=== PATIENT | male | born 1935 ===

== ENCOUNTER 2018-05-31 23:43 | Inpatient (IN) | payer MEDICAID, MEDICARE ==
[2018-05-31 23:43] VITALS: BMI 29.1
[2018-06-01 02:36] LABS: INR 1.4; PROTHROMBIN TIME 16.4 Seconds (9.8-13.1)
[2018-06-01 02:39] LABS: PARTIAL THROMBOPLASTIN TIME 37.1 Seconds (25.6-37.1)
[2018-06-01 02:40] LABS: BLOOD UREA NITROGEN 23 mg/dl (9-20); GFR NON-AFRICAN AMERICAN > 60
[2018-06-01 02:42] LABS: BASO % 0.4 % (0.0-2.0); EOS # 0.1 K/uL (0.0-0.7); EOS % 2.6 % (0.0-4.0); HEMOGLOBIN 12.8 g/dL (12.0-18.0); LYMPH % 17.7 % (20.0-40.0); MEAN CELL VOLUME 99.8 fl (80.0-94.0); MEAN CORPUSCULAR HEMOGLOBIN 33.4 pg (27.0-31.0); MEAN CORPUSCULAR HGB CONC 33.5 g/dL (33.0-37.0); MONO % 17.1 % (0.0-10.0); NEUT # 3.5 K/uL (1.8-7.0); NEUT % 62.2 % (50.0-75.0); RBC 3.82 Mil/uL (4.40-5.90); RED CELL DISTRIBUTION WIDTH 13.9 % (11.5-14.5); WHITE BLOOD COUNT 5.7 K/uL (4.8-10.8)
[2018-06-01] MEDS ORDERED: Iohexol 300 100 ML IJ ONE (03:20)
[2018-06-01] MEDS ORDERED: Sodium Chloride 0.9% 50 ML IV ONE (03:20)
--- NOTE | 2018-06-01 04:01 | ED PDOC ---
Lower Extremity Pain/Injury Time Seen by Provider: 06/01/18 01:09 Chief Complaint (Nursing): Lower Extremity Problem/Injury Chief Complaint (Provider): Lower Extremity Problem/Injury History Per: Patient History/Exam Limitations: no limitations Onset/Duration Of Symptoms: Days Additional Complaint(s): 82 year old male with a history of multiple comorbidities including CVA, CAD, HIV and vascular disease presents to the ED for evaluation of worsening swelling and discoloration to his lower left extremity. He report an unwitnessed fall on and a small bump that appeared soon over. Over the last few days, the discoloration and swelling have spread down the entire extremity. Patient now reports ankle swelling. His daughter is at bedside and reports that she asked [facility] to call an ambulance multiple times and they refused, prompting her to call one herself. Patient is mostly non verbal however appears to be in pain when the left lower extremity is palpated. Denies any other complaints. PMD: Franklin Wilkerson Past Medical History Reviewed: Historical Data, Nursing Documentation, Vital Signs Vital Signs: Last Vital Signs Temp 97.8 F 05/31/18 23:48 Pulse 60 05/31/18 23:48 Resp 18 05/31/18 23:48 BP 146/64 05/31/18 23:48 Pulse Ox 100 05/31/18 23:48 - Medical History PMH: Asthma, CAD, CVA, HIV, HTN, TIA Denies: Chronic Kidney Disease - Surgical History Surgical History: No Surg Hx - Family History Family History: States: Unknown Family Hx - Immunization History Hx Tetanus Toxoid Vaccination: No (unknown) Hx Influenza Vaccination: No (unknown) Hx Pneumococcal Vaccination: No (unknown) - Home Medications Home Medications: Ambulatory Orders Medication Instructions Recorded Budesonide [Pulmicort Respules] 0.5 mg IH BID 10/06/17 Docusate [Colace] 100 mg PO BID 10/06/17 Efinaconazole [Jublia] 1 applic TP HS 10/06/17 Insulin Detemir [Levemir] 10 unit SC 10/06/17 Propylene Glycol/Peg 400 [Systane 1 drop BOTHEYES DAILY 10/06/17 0.3-0.4% Eye Drops] Raltegravir Potassium [Isentress] 400 mg PO BID 10/06/17 Rilpivirine HCl [Edurant] 25 mg PO DAILY 10/06/17 Sennosides [Senno] 8.6 mg PO HS 10/06/17 Clopidogrel [Plavix] 75 mg PO DAILY #0 tab 10/11/17 Famotidine [Pepcid] 20 mg PO DAILY tab 10/11/17 Rosuvastatin Calcium 2.5 [Crestor] 2.5 mg PO HS tab 10/11/17 Albuterol/Ipratropium [Duoneb 3 3 ml IH RQ6 PRN neb 10/17/17 mg/0.5 mg (3 ml) UD] Amantadine [Symmetrel] 100 mg PO DAILY ml 10/17/17 Apixaban [Eliquis] 5 mg PO BID 999 Days tab 10/17/17 Sulfamethoxazole/Trimethoprim 20 ml PO MWF 30 Days alexsander 10/17/17 [Bactrim 200mg-40mg/5mL Susp] Gentamicin Sulfate 1 applic TOP DAILY 10/23/17 Insulin Aspart [Novolog Flexpen] 7 unit SC TID 10/23/17 Magnesium Hydroxide [Milk of 30 ml PO DAILY PRN 10/23/17 Magnesia] Mylanta 30 ml PO Q4 PRN 10/23/17 Emtricitabine/Tenofov Alafenam 1 each PO DAILY #30 tablet 10/28/17 [Descovy 200-25 mg Tablet] Raltegravir Potassium [Isentress] 400 mg PO BID #60 tab 10/28/17 Ciprofloxacin [Cipro] 500 mg PO BID #14 tab 10/30/17 Finasteride [Proscar] 5 mg PO DAILY tab 10/30/17 - Allergies Allergies/Adverse Reactions: Allergies Allergy/AdvReac Type Severity Reaction Status Date / Time No Known Allergies Allergy Verified 10/06/17 17:52 Review of Systems ROS Statement: Except As Marked, All Systems Reviewed And Found Negative Musculoskeletal: Positive for: Leg Pain Physical Exam - Reviewed Nursing Documentation Reviewed: Yes Vital Signs Reviewed: Yes - Physical Exam Appears: Positive for: No Acute Distress Head Exam: Positive for: ATRAUMATIC, NORMAL INSPECTION, NORMOCEPHALIC Skin: Positive for: Normal Color, Warm, Dry Eye Exam: Positive for: EOMI, Normal appearance, PERRL Neck: Positive for: Normal, Painless ROM, Supple Cardiovascular/Chest: Positive for: Regular Rate, Rhythm. Negative for: Murmur Respiratory: Positive for: Normal Breath Sounds. Negative for: Respiratory Distress Gastrointestinal/Abdominal: Positive for: Normal Exam, Soft. Negative for: Tenderness Extremity: Positive for: Normal ROM, Other (left lower extremity is warm to palpation. Bluish discoloraton along anterolateral leg and a 3 x 3 cm area of fluctuance). Negative for: Deformity Neurologic/Psych: Positive for: Alert, Oriented. Negative for: Motor/Sensory Deficits - Laboratory Results Result Diagrams: 06/01/18 02:05 06/01/18 02:05 - ECG O2 Sat by Pulse Oximetry: 100 (RA) Pulse Ox Interpretation: Normal Medical Decision Making Medical Decision Makin:26 MDM: workup for standing hematoma vs infectious process vs thrombosis Initial x-rays to determine coagulation profile Consider CT Will give pain control if it worsens. 02:59 Ct of lower extremity ordered. 5:30 CT shows large hematoma and extravation of contrast suggestive of continued bleeding. Surgery resident was contacted and official surgery consult was placed. Leg placed in deonna wrap. Pt to be admitted to the medicine floor under Dr. Cuevas. Scribe Attestation: Documented by Lea Baum acting as a scribe for Josey Alcantar MD Provider Scribe Attestation: All medical record entries made by the Scribe were at my direction and personally dictated by me. I have reviewed the chart and agree that the record accurately reflects my personal performance of the history, physical exam, medical decision making, and the department course for this patient. I have also personally directed, reviewed, and agree with the discharge instructions and disposition. Disposition - Clinical Impression Clinical Impression: HIV positive, History of CVA (cerebrovascular accident), Hematoma - Patient ED Disposition Is Patient to be Admitted: Yes - Disposition Disposition Time: 05:30 Condition: STABLE Forms: [employer] ([place])
--- NOTE | 2018-06-01 06:04 | CP.PCM.CON ---
History of Present Illness - History of Present Illness History of Present Illness: General Surgery: Dr Ochoa Pt is an 82M with PMH of CVA, CAD, PAD, DM, HTN, HIV. Pt is brought to ED from [place] by his daughter. She reports on she noted he had a small bruise on his left gaitan. Over the course of the next several days it continued to expand, now resulting in a decent tennis-ball sized hematoma over the gaitan, with associated skin changes. The area is warm to touch. Does not appear to cause the pt any pain or discomfort. Inciting event unknown. Pt is on eliquis AND plavix. No intervention has been done to this point. PMH: as above PSH: denies Review of Systems - Review of Systems Systems not reviewed;Unavailable: Dementia All systems: reviewed and no additional remarkable complaints except (as per hpi) Past Patient History - Past Medical History & Family History Past Medical History?: Yes - Past Social History Smoking Status: Never Smoked - CARDIAC Hx Hypertension: Yes - PULMONARY Hx Asthma: Yes - NEUROLOGICAL Hx Transient Ischemic Attacks (TIA): Yes - HEENT Hx HEENT Problems: No - RENAL Hx Chronic Kidney Disease: No - ENDOCRINE/METABOLIC Hx Diabetes Mellitus Type 2: Yes - HEMATOLOGICAL/ONCOLOGICAL Hx Human Immunodeficiency Virus (HIV): Yes - INTEGUMENTARY Hx Dermatological Problems: Yes Other/Comment: Stage 2 ulcer- R buttock 2 cm x 1.5 cm. right cheek scab - MUSCULOSKELETAL/RHEUMATOLOGICAL Hx Falls: No - GASTROINTESTINAL Hx Gastrointestinal Disorders: No - GENITOURINARY/GYNECOLOGICAL Hx Genitourinary Disorders: No - PSYCHIATRIC Hx Psychophysiologic Disorder: No Hx Substance Use: No - SURGICAL HISTORY Hx Surgeries: No - ANESTHESIA Hx Anesthesia: No Meds Allergies/Adverse Reactions: Allergies Allergy/AdvReac Type Severity Reaction Status Date / Time No Known Allergies Allergy Verified 10/06/17 17:52 Physical Exam - Constitutional Appears: Non-toxic, No Acute Distress - ENT Exam ENT Exam: Mucous Membranes Moist - Respiratory Exam Respiratory Exam: absent: Respiratory Distress - Cardiovascular Exam Cardiovascular Exam: absent: Tachycardia - Extremities Exam Additional comments: left gaitan with ~ 5x5cm hematoma with associated skin changes warm to touch compared to other extremity Results - Vital Signs Recent Vital Signs: Last Vital Signs Temp 97.8 F 05/31/18 23:48 Pulse 60 05/31/18 23:48 Resp 18 05/31/18 23:48 BP 146/64 05/31/18 23:48 Pulse Ox 100 06/01/18 05:38 - Labs Result Diagrams: 06/01/18 02:05 06/01/18 02:05 Labs: Laboratory Results - last 24 hr 06/01/18 06/01/18 06/01/18 02:05 02:05 02:05 WBC 5.7 RBC 3.82 L Hgb 12.8 Hct 38.1 MCV 99.8 H MCH 33.4 H MCHC 33.5 RDW 13.9 Plt Count 224 MPV 7.0 L Neut % (Auto) 62.2 Lymph % (Auto) 17.7 L [place] % (Auto) 17.1 H Eos % (Auto) 2.6 Baso % (Auto) 0.4 Neut # (Auto) 3.5 Lymph # (Auto) 1.0 [place] # (Auto) 1.0 H Eos # (Auto) 0.1 Baso # (Auto) 0.0 PT 16.4 H INR 1.4 APTT 37.1 Sodium 139 Potassium 5.0 Chloride 108 H Carbon Dioxide 24 Anion Gap 12 BUN 23 H Creatinine 1.0 Est GFR ( Amer) > 60 Est GFR (Non-Af Amer) > 60 Random Glucose 167 H Calcium 9.0 Assessment & Plan - Assessment and Plan (Free Text) Assessment: 82M with expanding hematoma of left gaitan Plan: compression wrap with deonna bandage ice packs elevate leg above heart level hold anti-coagulation no immediate intervention - but may need IR vs OR if continues to worsen will d/w Dr Don Sinclair, PGY4
[2018-06-01] MEDS ORDERED: guaiFENesin 600 mg ER Tab PO PRN (06:29)
[2018-06-01] MEDS ORDERED: Glucagon Recombinant 1 mg Inj IM PRN (06:33)
[2018-06-01] MEDS ORDERED: Dextrose 50% SYRINGE Inj (50 ml) IV PRN (06:33)
--- NOTE | 2018-06-01 06:52 | CP.PCM.HP ---
History of Present Illness - History of Present Illness History of Present Illness: 82 y/o male w/ pmhx of a-fib on anti-coagulants, stroke, HIV, CHF, and HTN who was transferred from [facility] due to worsening, painful, left lower extremity/gaitan hematoma. Patient had a stroke 8 months ago, and is a poor histo abbie. Daughter at bedside has POA. She states that she is unsure if patient had any trauma to the area. Denies chest pain, fevers, n/v, SOB. 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 Lives at [facility]. FamHx: Parents w/ DM Allergies: NKDA HomeRx: Apixaban 5mg PO BID, Plavix 75mg 1 tab PO QD, Domase Elijah 3mL BID, Raltegravir Potassium 400mg BID, Rilpivirine 25mg PO QD, Sulfamethoxazole- Trimethroprim 200-40 mg/5ML 20mL MWF, Systane 1 drop in both eyes QD, Descovy 200-25mg QD, DuoNeb 0.5-2.5 Q6H PRN, Budesonide Suspension 0.5mg/2mL BID, Ins ulin Detemir 10 units SC HS Code Status: Full code Next of Kin: Aliyah Davies, Present on Admission - Present on Admission Any Indicators Present on Admission: No History of DVT/PE: No History of Uncontrolled Diabetes: No Urinary Catheter: No Decubitus Ulcer Present: No Review of Systems - Review of Systems Systems not reviewed;Unavailable: Other (Poor historian due to stroke) - Cardiovascular Cardiovascular: absent: Chest Pain - Respiratory Respiratory: absent: Cough - Gastrointestinal Gastrointestinal: absent: Nausea, Vomiting - Musculoskeletal Musculoskeletal: absent: Numbness, Tingling - Integumentary Integumentary: Change in Pigmentation, Changing Lesions, Erythema, Swelling, Unusual Bruising Additional comments: on left gaitan - Neurological Neurological: Abnormal Speech Past Patient History - Infectious Disease Hx of Infectious Diseases: None - Past Medical History & Family History Past Medical History?: Yes - Past Social History Smoking Status: Never Smoked Alcohol: None Drugs: Denies - CARDIAC Hx Hypertension: Yes - PULMONARY Hx Asthma: Yes - NEUROLOGICAL Hx Transient Ischemic Attacks (TIA): Yes - HEENT Hx HEENT Problems: No - RENAL Hx Chronic Kidney Disease: No - ENDOCRINE/METABOLIC Hx Diabetes Mellitus Type 2: Yes - HEMATOLOGICAL/ONCOLOGICAL Hx Human Immunodeficiency Virus (HIV): Yes - INTEGUMENTARY Hx Dermatological Problems: Yes Other/Comment: Stage 2 ulcer- R buttock 2 cm x 1.5 cm. right cheek scab - MUSCULOSKELETAL/RHEUMATOLOGICAL Hx Falls: No - GASTROINTESTINAL Hx Gastrointestinal Disorders: No - GENITOURINARY/GYNECOLOGICAL Hx Genitourinary Disorders: No - PSYCHIATRIC Hx Psychophysiologic Disorder: No Hx Substance Use: No - SURGICAL HISTORY Hx Surgeries: No - ANESTHESIA Hx Anesthesia: No Meds Allergies/Adverse Reactions: Allergies Allergy/AdvReac Type Severity Reaction Status Date / Time No Known Allergies Allergy Verified 10/06/17 17:52 Physical Exam - Constitutional Appears: No Acute Distress - Head Exam Head Exam: ATRAUMATIC - Eye Exam Eye Exam: Normal appearance - ENT Exam ENT Exam: Mucous Membranes Moist - Respiratory Exam Respiratory Exam: Clear to Auscultation Bilateral, NORMAL BREATHING PATTERN - Cardiovascular Exam Cardiovascular Exam: REGULAR RHYTHM, +S1, +S2 - GI/Abdominal Exam GI & Abdominal Exam: Normal Bowel Sounds, Soft. absent: Tenderness - Extremities Exam Extremities exam: Negative for: calf tenderness, joint swelling, pedal edema Additional comments: Left anterior surface of gaitan: large, tender, erythematous swelling - Neurological Exam Neurological exam: Alert - Skin Skin Exam: Dry, Intact, Warm Results - Vital Signs Recent Vital Signs: Last Vital Signs Temp 98.0 F 06/01/18 06:02 Pulse 60 06/01/18 06:02 Resp 18 06/01/18 06:02 BP 174/78 H 06/01/18 06:02 Pulse Ox 100 06/01/18 06:02 - Labs Result Diagrams: 06/01/18 02:05 06/01/18 02:05 Labs: Laboratory Results - last 24 hr 06/01/18 06/01/18 06/01/18 02:05 02:05 02:05 WBC 5.7 RBC 3.82 L Hgb 12.8 Hct 38.1 MCV 99.8 H MCH 33.4 H MCHC 33.5 RDW 13.9 Plt Count 224 MPV 7.0 L Neut % (Auto) 62.2 Lymph % (Auto) 17.7 L [place] % (Auto) 17.1 H Eos % (Auto) 2.6 Baso % (Auto) 0.4 Neut # (Auto) 3.5 Lymph # (Auto) 1.0 [place] # (Auto) 1.0 H Eos # (Auto) 0.1 Baso # (Auto) 0.0 PT 16.4 H INR 1.4 APTT 37.1 Sodium 139 Potassium 5.0 Chloride 108 H Carbon Dioxide 24 Anion Gap 12 BUN 23 H Creatinine 1.0 Est GFR ( Amer) > 60 Est GFR (Non-Af Amer) > 60 Random Glucose 167 H Calcium 9.0 Assessment & Plan - Assessment and Plan (Free Text) Assessment: 82 y/o male w/ hx of CHF and afib on plavix and abixaban admitted with expanding hematoma of left gaitan Plan: Left Gaitan Hematoma Acute CT of left tibia and fibula: superficial subcutaneuos anterior mid neck soft tissue hematoma w/ active contrast extravasation suggestive of active bleeding. No fractures. Surgery consult on board; appreciate recs: compression wrap with deonna bandage, ice packs, elevate leg above heart level. No surgical intervention at this time, but may need IR vs OR if continues to worsen Hold anti-coagulation Repeat labs in AM Tylanol 325mg PO for 1-3 pain Percocet for 4-6 pain Hx of HIV Cont. home meds Descovy 200-25mg 1 tab PO QD Raltegravir Potassium 400mg 1 tab PO Q12 Rilpivirine Hcl 25mg PO QD Sulfamethoxazole-Trimethoprim 200-40 20mL one time MWF Hx of Afib Hold anti-coagulants Will monitor Hx of DM Chronic, stable Coverage scale Cont. home meds Hx of HTN Chronic, stable cont. home meds Diet NPO DVT prophylaxis SCD on right leg Code Status Full code
[2018-06-01] MEDS: Insulin Lispro (humaLOG) 100 Units/ml Inj SC SCH ×7 (07:00→22:57)
[2018-06-01] MEDS: Dextrose 5%/0.45% NS 1,000 ML IV SCH ×2 (07:40→21:40)
[2018-06-01] MEDS ORDERED: RILPIVIRINE HCL 25 MG PO SCH (09:00)
[2018-06-01] MEDS ORDERED: Tmp-Smz 200-40mg/5 ml Oral Sus(120 ml) PO SCH (09:00)
--- NOTE | 2018-06-01 11:00 | RAD ---
Date of service: 06/01/2018 PROCEDURE: Left Ankle Radiographs. HISTORY: left ankle pain COMPARISON: None available. FINDINGS: BONES: Normal. No fracture. JOINTS: Normal. No osteoarthritis. Ankle mortise maintained. Talar dome intact SOFT TISSUES: Normal. OTHER FINDINGS: Postoperative changes related to arterial bypass. Dense calcifications of [place] arteries. IMPRESSION: No acute findings related to/ accounting for the clinical presentation.
--- NOTE | 2018-06-01 11:56 | RAD ---
Date of service: 06/01/2018 PROCEDURE: Radiographs of the left tibia and fibula. HISTORY: left leg swelling and pain s/p fall COMPARISON: None available. TECHNIQUE: Frontal and lateral views obtained. FINDINGS: BONES: No fracture or destructive lesion. JOINT SPACES: Unremarkable. OTHER FINDINGS: Soft tissue swelling proximal pretibial region anteriorly. No visualized radiopaque foreign body. IMPRESSION: Soft tissue swelling without acute articular or osseous abnormality.
[2018-06-01 12:30] LABS: HEMOGLOBIN 13.5 g/dL (12.0-18.0); MEAN CELL VOLUME 99.4 fl (80.0-94.0); MEAN CORPUSCULAR HEMOGLOBIN 33.1 pg (27.0-31.0); MEAN CORPUSCULAR HGB CONC 33.3 g/dL (33.0-37.0); RBC 4.09 Mil/uL (4.40-5.90); RED CELL DISTRIBUTION WIDTH 13.8 % (11.5-14.5); WHITE BLOOD COUNT 5.1 K/uL (4.8-10.8)
[2018-06-01] MEDS: TENOFOV ALAFENAM PO SCH (13:00)
[2018-06-01] MEDS: Artificial Tears Opht Soln OU SCH (13:00)
[2018-06-01] MEDS: EMTRICITABINE PO SCH (13:00)
[2018-06-01] MEDS: RILPIVIRINE HCL 25 MG PO SCH (13:00)
[2018-06-01] MEDS: Budesonide 0.5 mg/2 ml Inhal Susp UD IH SCH (19:17)
[2018-06-01] MEDS: Insulin Detemir 100 Units/ml Inj SC SCH (21:51)
[2018-06-01] MEDS ORDERED: EFINACONAZOLE TP SCH (22:00)
[2018-06-01] MEDS: Oxycodone/Acetaminophen 5/325 mg Tab PO PRN (23:21)
--- NOTE | 2018-06-02 06:22 | CP.PCM.PN ---
Subjective - Date & Time of Evaluation Date of Evaluation: 06/02/18 Time of Evaluation: 06:20 - Subjective Subjective: General Surgery Progress Note for Dr. Ochoa 82M seen and evaluated at bedside this morning with daughter present. No acute events overnight. Daughter complained that his urine smelled foul and requested a UA. A condom cath was placed as well. Patient resting comfortably in bed. No pain in the leg noted. Denies f/c, n/v/d, SOB, CP. Objective - Vital Signs/Intake and Output Vital Signs (last 24 hours): Temp Pulse Resp BP Pulse Ox 98.3 F 60 20 156/67 H 98 06/01/18 23:35 06/01/18 23:35 06/01/18 23:35 06/01/18 23:35 06/01/18 23:35 - Medications Medications: Current Medications Acetaminophen (Tylenol 325mg Tab) 650 mg PO Q6 PRN PRN Reason: Pain, Mild (1-3) Albuterol/Ipratropium (Duoneb 3 Mg/0.5 Mg (3 Ml) Ud) 3 ml IH RQ6 PRN PRN Reason: Wheezing Artificial Tears (Artificial Tears) 1 drop OU DAILY [facility] Last Admin: 06/01/18 13:00 Dose: 1 units Budesonide (Pulmicort Respules) 0.5 mg IH RBID [facility] Last Admin: 06/01/18 19:17 Dose: 0.5 mg Dextrose (Dextrose 50% Inj) 0 ml IV STAT PRN; Protocol PRN Reason: Hypoglycemia Protocol Dextrose (Glutose 15) 0 gm PO ONCE PRN; Protocol PRN Reason: Hypoglycemia Protocol Glucagon (Glucagen Diagnostic Kit) 0 mg IM STAT PRN; Protocol PRN Reason: Hypoglycemia Protocol Guaifenesin (Mucinex La) 600 mg PO Q12 PRN PRN Reason: congestion Home Med (Efinaconazole [Jublia]) 1 applic TP HS [facility] Home Med (Emtricitabine/Tenofov Alafenam [Descovy 200-25 Mg Tablet]) 1 each PO DAILY [facility] Last Admin: 06/01/18 13:00 Dose: 1 each Home Med (Rilpivirine Hcl [Edurant]) 25 mg PO DAILYWM [facility] Last Admin: 06/01/18 13:00 Dose: 25 mg Dextrose/Sodium Chloride (Dextrose 5%/0.45% Ns 1000 Ml) 1,000 mls @ 80 mls/hr IV .[id number] [facility] Stop: 06/02/18 06:21 Last Admin: 06/01/18 21:40 Dose: 80 mls/hr Insulin Detemir (Levemir) 10 units SC HS [facility] Last Admin: 06/01/18 21:51 Dose: Not Given Insulin Human Lispro (Humalog) 7 units SC TID [facility] Last Admin: 06/01/18 17:21 Dose: 7 u Insulin Human Lispro (Humalog) 0 units SC ACCU-CHECK [facility]; Protocol Last Admin: 06/01/18 22:57 Dose: Not Given Oxycodone/Acetaminophen (Percocet 5/325 Mg Tab) 1 tab PO Q4 PRN PRN Reason: Pain, moderate (4-7) Stop: 06/04/18 06:35 Last Admin: 06/01/18 23:21 Dose: 1 tab Raltegravir (Isentress) 400 mg PO BID [facility]; Protocol Last Admin: 06/01/18 17:22 Dose: 400 mg Trimethoprim/Sulfamethoxazole (Sulfatrim Pediatric Susp) 20 ml PO MWF [facility]; Protocol Last Admin: 06/01/18 17:17 Dose: 20 ml - Labs Labs: 06/01/18 12:10 06/01/18 02:05 PT 16.4 Seconds (9.8-13.1) H 06/01/18 02:05 INR 1.4 06/01/18 02:05 APTT 37.1 Seconds (25.6-37.1) 06/01/18 02:05 - Constitutional Appears: Well, Non-toxic, No Acute Distress - Head Exam Head Exam: ATRAUMATIC, NORMAL INSPECTION, NORMOCEPHALIC - Eye Exam Eye Exam: EOMI - ENT Exam ENT Exam: Mucous Membranes Moist - Respiratory Exam Respiratory Exam: NORMAL BREATHING PATTERN. absent: Respiratory Distress - Extremities Exam Additional comments: left leg wrapped in BONG bandage with ice packs in place Leg elevated No tenderness to palpation - Neurological Exam Neurological Exam: Alert, Awake - Psychiatric Exam Psychiatric exam: Normal Affect, Normal Mood Assessment and Plan - Assessment and Plan (Free Text) Assessment: 82M w/ hematoma of the left gaitan, stable Plan: Hbg stable Continue BONG wraps Ice packs Leg elevation Hold anticoagulation No surgical intervention indicated at this present time Further recommendations per Dr. Don Nielson PGY1
[2018-06-02] MEDS: Oxycodone/Acetaminophen 5/325 mg Tab PO PRN (06:27)
[2018-06-02 06:58] LABS: INR 1.2; PROTHROMBIN TIME 13.8 Seconds (9.8-13.1)
[2018-06-02 07:03] LABS: BASO % 0.4 % (0.0-2.0); EOS # 0.1 K/uL (0.0-0.7); EOS % 2.5 % (0.0-4.0); HEMOGLOBIN 11.7 g/dL (12.0-18.0); LYMPH # 0.8 K/uL (1.0-4.3); LYMPH % 21.8 % (20.0-40.0); MEAN CELL VOLUME 99.7 fl (80.0-94.0); MEAN CORPUSCULAR HEMOGLOBIN 33.1 pg (27.0-31.0); MEAN CORPUSCULAR HGB CONC 33.2 g/dL (33.0-37.0); MEAN PLATELET VOLUME 7.1 fl (7.2-11.7); MONO # 0.8 K/uL (0.0-0.8); MONO % 21.7 % (0.0-10.0); NEUT # 1.9 K/uL (1.8-7.0); NEUT % 53.6 % (50.0-75.0); NRBC % 0.2 % (0.0-0.0); PLATELET COUNT 217 K/uL (130-400); RBC 3.52 Mil/uL (4.40-5.90); WHITE BLOOD COUNT 3.5 K/uL (4.8-10.8)
[2018-06-02] MEDS: Budesonide 0.5 mg/2 ml Inhal Susp UD IH SCH ×2 (07:12→19:01)
[2018-06-02 07:34] LABS: BLOOD UREA NITROGEN 17 mg/dl (9-20); CALCIUM 8.5 mg/dL (8.4-10.2); GFR NON-AFRICAN AMERICAN > 60
[2018-06-02] MEDS: Insulin Lispro (humaLOG) 100 Units/ml Inj SC SCH ×7 (09:52→23:40)
[2018-06-02] MEDS: Artificial Tears Opht Soln OU SCH (09:52)
[2018-06-02] MEDS: TENOFOV ALAFENAM PO SCH (09:52)
[2018-06-02] MEDS: EMTRICITABINE PO SCH (09:52)
[2018-06-02] MEDS: RILPIVIRINE HCL 25 MG PO SCH (09:53)
[2018-06-02 10:25] LABS: EOSINOPHIL 2 % (0-7); LYMPHOCYTE 24 % (20-50); MONOCYTE 26 % (0-10); NEUTROPHIL 48 % (42-75); PLATELET ESTIMATE NORMAL (NORMAL); TOTAL CELLS COUNTED 100
[2018-06-02 10:26] LABS: HYPOCHROMIC SLIGHT; LARGE PLATELETS PRESENT; PLATELET CLUMPS PRESENT
[2018-06-02 10:52] LABS: SQUAMOUS EPITHIAL 1 /hpf (0-5); URINE BACTERIA MOD (<OCC); URINE BILIRUBIN NEGATIVE (NEGATIVE); URINE BLOOD NEGATIVE (NEGATIVE); URINE CLARITY TURBID (Clear); URINE COLOR YELLOW (YELLOW); URINE GLUCOSE (UA) NEG (NEGATIVE); URINE LEUKOCYTE ESTERASE LARGE Leu/uL (Negative); URINE PROTEIN 30 mg/dL (NEGATIVE); URINE UROBILINOGEN 0.2-1.0 mg/dL (0.2-1.0)
--- NOTE | 2018-06-02 12:13 | CP.PCM.PN ---
Subjective - Date & Time of Evaluation Date of Evaluation: 06/02/18 Time of Evaluation: 12:01 - Subjective Subjective: 82 y/o male patient seen and evaluated at the bedside for expanding hematoma of left gaitan of tibia. Patient was sleeping in his bed at the visit time. He was accompanied with his daughter at the bedside. Patient was sedated, difficult to be aroused but could be aroused at the end. His daughter states that he is like that since yesterday when he received the pain medication. She states that he was in much pain yesterday from his left leg hematoma. She states that he mostly got the hematoma at the [place] [facility]. As per patient chart, Ther was no overnight F/N/V/C or SOB. orthodontist vice president state that his left leg hematoma is stable in size since yesterday. Objective - Vital Signs/Intake and Output Vital Signs (last 24 hours): Temp Pulse Resp BP Pulse Ox 97.3 F L 60 20 110/66 98 06/02/18 09:00 06/02/18 09:00 06/02/18 09:00 06/02/18 09:00 06/02/18 09:00 - Medications Medications: Current Medications Acetaminophen (Tylenol 325mg Tab) 650 mg PO Q6 PRN PRN Reason: Pain, Mild (1-3) Albuterol/Ipratropium (Duoneb 3 Mg/0.5 Mg (3 Ml) Ud) 3 ml IH RQ6 PRN PRN Reason: Wheezing Artificial Tears (Artificial Tears) 1 drop OU DAILY [facility] Last Admin: 06/02/18 09:52 Dose: 1 units Budesonide (Pulmicort Respules) 0.5 mg IH RBID [facility] Last Admin: 06/02/18 07:12 Dose: 0.5 mg Dextrose (Dextrose 50% Inj) 0 ml IV STAT PRN; Protocol PRN Reason: Hypoglycemia Protocol Dextrose (Glutose 15) 0 gm PO ONCE PRN; Protocol PRN Reason: Hypoglycemia Protocol Glucagon (Glucagen Diagnostic Kit) 0 mg IM STAT PRN; Protocol PRN Reason: Hypoglycemia Protocol Guaifenesin (Mucinex La) 600 mg PO Q12 PRN PRN Reason: congestion Home Med (Efinaconazole [Jublia]) 1 applic TP HS [facility] Home Med (Emtricitabine/Tenofov Alafenam [Descovy 200-25 Mg Tablet]) 1 each PO DAILY [facility] Last Admin: 06/02/18 09:52 Dose: 1 each Home Med (Rilpivirine Hcl [Edurant]) 25 mg PO DAILYWM [facility] Last Admin: 06/02/18 09:53 Dose: 25 mg Insulin Detemir (Levemir) 10 units SC HS [facility] Last Admin: 06/01/18 21:51 Dose: Not Given Insulin Human Lispro (Humalog) 7 units SC TID [facility] Last Admin: 06/02/18 09:52 Dose: 7 u Insulin Human Lispro (Humalog) 0 units SC ACCU-CHECK [facility]; Protocol Last Admin: 06/02/18 09:52 Dose: 3 u Ketorolac Tromethamine (Toradol) 30 mg IVP Q6 PRN PRN Reason: Pain, severe (8-10) Oxycodone/Acetaminophen (Percocet 5/325 Mg Tab) 1 tab PO Q4 PRN PRN Reason: Pain, moderate (4-7) Stop: 06/04/18 06:35 Last Admin: 06/02/18 06:27 Dose: 1 tab Raltegravir (Isentress) 400 mg PO BID [facility]; Protocol Last Admin: 06/02/18 09:53 Dose: 400 mg - Labs Labs: 06/02/18 06:01 06/02/18 06:01 PT 13.8 Seconds (9.8-13.1) H 06/02/18 06:01 INR 1.2 06/02/18 06:01 APTT 33.0 Seconds (25.6-37.1) 06/02/18 06:01 - Constitutional Appears: Non-toxic - Head Exam Head Exam: ATRAUMATIC - Eye Exam Eye Exam: Normal appearance - ENT Exam ENT Exam: Mucous Membranes Moist - Neck Exam Neck Exam: Normal Inspection - Respiratory Exam Respiratory Exam: Clear to Ausculation Bilateral, NORMAL BREATHING PATTERN - Cardiovascular Exam Cardiovascular Exam: REGULAR RHYTHM, RRR - GI/Abdominal Exam GI & Abdominal Exam: Soft, Normal Bowel Sounds - Extremities Exam Additional comments: Tennis ball size swelling around [id number] noted to gaitan area. Bluish/Purplish discoloration noted. - Neurological Exam Neurological Exam: Altered - Skin Skin Exam: Dry, Warm Assessment and Plan - Assessment and Plan (Free Text) Assessment: 82 y/o male patient seen and evaluated at the [facility] for hematoma of left gaitan of Tibia. Plan: Left Gaitan Hematoma Acute CT of left tibia and fibula: superficial subcutaneuos anterior mid neck soft tissue hematoma w/ active contrast extravasation suggestive of active bleeding. No fractures. Surgery consult on board; appreciate recs: C/W compression wrap with deonna bandage, ice packs, elevate leg above heart level. No surgical intervention at this time According to surgery hematoma is stable in size since yesterday. Acording to surgery no surgical intervention indicated at this present time Hold anti-coagulation Continue monitoring the patient labs, repeat labs in the morning Tylanol 325mg PO for 1-3 pain Hold Percocet Toradol 30 mg Iv Q6 PRN for sever pain Hx of HIV Cont. home meds Descovy 200-25mg 1 tab PO QD Raltegravir Potassium 400mg 1 tab PO Q12 Rilpivirine Hcl 25mg PO QD Sulfamethoxazole-Trimethoprim 200-40 20mL one time MWF Hx of Afib Hold anti-coagulants Will monitor Hx of DM Chronic, stable Coverage scale Cont. home meds Hx of HTN Chronic, stable cont. home meds Diet NPO DVT prophylaxis SCD on right leg
[2018-06-02] MEDS: Albuterol-Ipratrop 3 mg / 0.5 (3 ml) UD IH PRN (18:31)
[2018-06-02] MEDS ORDERED: Dextrose 5%/0.45% NS 1,000 ML IV SCH (22:15)
[2018-06-02] MEDS: Insulin Detemir 100 Units/ml Inj SC SCH (23:47)
[2018-06-03 06:36] LABS: BLOOD UREA NITROGEN 20 mg/dl (9-20); CALCIUM 8.5 mg/dL (8.4-10.2); GFR NON-AFRICAN AMERICAN 58
[2018-06-03 06:38] LABS: HEMOGLOBIN 12.3 g/dL (12.0-18.0); MEAN CELL VOLUME 98.7 fl (80.0-94.0); MEAN CORPUSCULAR HEMOGLOBIN 32.9 pg (27.0-31.0); MEAN CORPUSCULAR HGB CONC 33.4 g/dL (33.0-37.0); RBC 3.74 Mil/uL (4.40-5.90); WHITE BLOOD COUNT 8.5 K/uL (4.8-10.8)
[2018-06-03] MEDS: Albuterol-Ipratrop 3 mg / 0.5 (3 ml) UD IH PRN (07:34)
[2018-06-03] MEDS: Budesonide 0.5 mg/2 ml Inhal Susp UD IH SCH ×2 (07:34→22:54)
[2018-06-03] MEDS: Artificial Tears Opht Soln OU SCH (09:16)
[2018-06-03] MEDS: EMTRICITABINE PO SCH (09:19)
[2018-06-03] MEDS: Insulin Lispro (humaLOG) 100 Units/ml Inj SC SCH ×7 (09:19→22:43)
[2018-06-03] MEDS: TENOFOV ALAFENAM PO SCH (09:19)
[2018-06-03] MEDS: RILPIVIRINE HCL 25 MG PO SCH (09:20)
--- NOTE | 2018-06-03 10:39 | CP.PCM.PN ---
Subjective - Date & Time of Evaluation Date of Evaluation: 06/03/18 Time of Evaluation: 10:20 - Subjective Subjective: 82 y/o male patient seen and evaluated at the bedside for expanding hematoma of left gaitan of tibia. Patient was sitting in his bed at the visit time and trained by physical therapy. He was accompanied with his son at the bedside. Patient is poor historian and all his information obtained through his nurse and his chart. His nurse states that there was no overnight N/V/C or SOB. As per patient chart he had episodes of fever 100.3 yesterday. Objective - Vital Signs/Intake and Output Vital Signs (last 24 hours): Temp Pulse Resp BP Pulse Ox 98.2 F 67 20 111/62 98 06/03/18 08:33 06/03/18 08:33 06/03/18 08:33 06/03/18 08:33 06/03/18 08:33 - Medications Medications: Current Medications Acetaminophen (Tylenol 325mg Tab) 650 mg PO Q6 PRN PRN Reason: Pain, Mild (1-3) Albuterol/Ipratropium (Duoneb 3 Mg/0.5 Mg (3 Ml) Ud) 3 ml IH RQ6 PRN PRN Reason: Wheezing Last Admin: 06/02/18 18:31 Dose: 3 ml Artificial Tears (Artificial Tears) 1 drop OU DAILY [facility] Last Admin: 06/03/18 09:16 Dose: 1 units Budesonide (Pulmicort Respules) 0.5 mg IH RBID [facility] Last Admin: 06/03/18 07:34 Dose: 0.5 mg Dextrose (Dextrose 50% Inj) 0 ml IV STAT PRN; Protocol PRN Reason: Hypoglycemia Protocol Dextrose (Glutose 15) 0 gm PO ONCE PRN; Protocol PRN Reason: Hypoglycemia Protocol Glucagon (Glucagen Diagnostic Kit) 0 mg IM STAT PRN; Protocol PRN Reason: Hypoglycemia Protocol Guaifenesin (Mucinex La) 600 mg PO Q12 PRN PRN Reason: congestion Last Admin: 06/02/18 17:29 Dose: 600 mg Home Med (Efinaconazole [Jublia]) 1 applic TP HS [facility] Home Med (Emtricitabine/Tenofov Alafenam [Descovy 200-25 Mg Tablet]) 1 each PO DAILY [facility] Last Admin: 06/03/18 09:19 Dose: 1 each Home Med (Rilpivirine Hcl [Edurant]) 25 mg PO DAILYWM [facility] Last Admin: 06/03/18 09:20 Dose: 25 mg Ceftriaxone Sodium 1 gm/ (Sodium Chloride) 100 mls @ 100 mls/hr IVPB DAILY [facility]; Protocol Last Admin: 06/03/18 09:21 Dose: 100 mls/hr Dextrose/Sodium Chloride (Dextrose 5%/0.45% Ns 1000 Ml) 1,000 mls @ 80 mls/hr IV .[id number] [facility] Stop: 06/03/18 22:03 Last Admin: 06/02/18 23:26 Dose: 80 mls/hr Insulin Detemir (Levemir) 10 units SC HS [facility] Last Admin: 06/02/18 23:47 Dose: Not Given Insulin Human Lispro (Humalog) 7 units SC TID [facility] Last Admin: 06/03/18 09:20 Dose: 7 u Insulin Human Lispro (Humalog) 0 units SC ACCU-CHECK [facility]; Protocol Last Admin: 06/03/18 09:19 Dose: 4 u Ketorolac Tromethamine (Toradol) 30 mg IVP Q6 PRN PRN Reason: Pain, severe (8-10) Raltegravir (Isentress) 400 mg PO BID [facility]; Protocol Last Admin: 06/03/18 09:20 Dose: 400 mg - Labs Labs: 06/03/18 06:19 06/03/18 06:19 PT 13.8 Seconds (9.8-13.1) H 06/02/18 06:01 INR 1.2 06/02/18 06:01 APTT 33.0 Seconds (25.6-37.1) 06/02/18 06:01 - Constitutional Appears: Non-toxic, No Acute Distress - Head Exam Head Exam: ATRAUMATIC - Eye Exam Eye Exam: EOMI, Normal appearance, PERRL Pupil Exam: PERRL - ENT Exam ENT Exam: Mucous Membranes Moist - Neck Exam Neck Exam: Normal Inspection - Respiratory Exam Respiratory Exam: Clear to Ausculation Bilateral, NORMAL BREATHING PATTERN - Cardiovascular Exam Cardiovascular Exam: REGULAR RHYTHM, RRR - GI/Abdominal Exam GI & Abdominal Exam: Soft, Normal Bowel Sounds - Extremities Exam Extremities Exam: Normal Capillary Refill Additional comments: Tennis ball size swelling about [id number] noted to gaitan area. Bluish/Purplish discoloration noted. Smaller in size since yesterday. - Neurological Exam Neurological Exam: Alert, Awake - Skin Skin Exam: Dry, Warm Assessment and Plan - Assessment and Plan (Free Text) Assessment: 82 y/o male patient seen and evaluated at the [facility] for hematoma of left gaitan of Tibia. Plan: Left Gaitan Hematoma Acute CT of left tibia and fibula: superficial subcutaneuos anterior mid neck soft tissue hematoma w/ active contrast extravasation suggestive of active bleeding. No fractures. X-ray left ankle: No bone anomalies. Surgery consult on board; appreciate recs: C/W compression wrap with deonna bandage, ice packs, elevate leg above heart level. No surgical intervention at this time According to surgery hematoma is smaller in size since yesterday. According to surgery no surgical intervention indicated at this present time Hold anti-coagulation Continue monitoring the patient labs, repeat labs in the morning Tylanol 325mg PO for 1-3 pain Hold Percocet Toradol 30 mg Iv Q6 PRN for sever pain UTI Urine Cx; Pending report Urine WBCs; 870 Leukocyte Esterase; +ve, large Ceftriaxone 1 gm IV QD (day 2) Hx of HIV Cont. home meds Descovy 200-25mg 1 tab PO QD Raltegravir Potassium 400mg 1 tab PO Q12 Rilpivirine Hcl 25mg PO QD Sulfamethoxazole-Trimethoprim 200-40 20mL one time MWF Hx of Afib Hold anti-coagulants Will monitor Hx of DM Chronic, stable Coverage scale Cont. home meds Hx of HTN Chronic, stable cont. home meds Diet NPO DVT prophylaxis SCD on right leg
--- NOTE | 2018-06-03 15:33 | CT ---
Date of service: 06/01/2018 PROCEDURE: CT scan of the left lower extremity with intravenous contrast. PROCEDURE: INDICATION: Left leg swelling, evaluate for extravasation TECHNIQUE: Multiple axial images were obtained with slice thickness of 2.5 mm after administration of intravenous contrast. Coronal and sagittal reformatted images were obtained. Iterative reconstruction was used. Contrast dose: 90 mL Omnipaque 300 Radiation dose: Total exam DLP = 1687.95 mGy-cm. PROCEDURE: This CT exam was performed using one or more of the following dose reduction techniques: Automated exposure control, adjustment of the mA and/or kV according to patient size, and/or use of iterative reconstruction technique. COMPARISON: None. FINDINGS: There is a 5.4 x 3.5 x 1.5 cm mixed attenuation lesion with an eccentric prominent high attenuation vessel along the medial wall in the superficial subcutaneous tissues of the anterolateral leg. There is stranding of surrounding subcutaneous fat and mild diffuse subcutaneous edema. The common femoral, superficial femoral, deep femoral, popliteal, anterior and posterior tibial and dorsalis pedis arteries have dense calcified atheromatous plaques with [id number] multifocal stenosis. No evidence for arterial occlusion or aneurysm. There is diffuse bone demineralization. No acute fracture or bone destruction. The periarticular muscles show mild fatty atrophy. IMPRESSION: 5.4 x 3.5 x 1.5 cm acute hematoma in the superficial subcutaneous tissues of the anterolateral leg with active contrast extravasation suggestive of active bleeding. Surgical consultation is recommended. A preliminary report was provided by [facility].
--- NOTE | 2018-06-03 17:30 | CP.PCM.PN ---
Subjective - Date & Time of Evaluation Date of Evaluation: 06/03/18 Time of Evaluation: 17:00 - Subjective Subjective: Patient seen and examined. Hematoma in L anterior gaitan stable. Bedside needle aspiration with no return. Hematoma likely clotted off. T max 100.9. Objective - Vital Signs/Intake and Output Vital Signs (last 24 hours): Temp Pulse Resp BP Pulse Ox 98.2 F 67 20 111/62 98 06/03/18 08:33 06/03/18 08:33 06/03/18 08:33 06/03/18 08:33 06/03/18 08:33 - Medications Medications: Current Medications Acetaminophen (Tylenol 325mg Tab) 650 mg PO Q6 PRN PRN Reason: Pain, Mild (1-3) Albuterol/Ipratropium (Duoneb 3 Mg/0.5 Mg (3 Ml) Ud) 3 ml IH RQ6 PRN PRN Reason: Wheezing Last Admin: 06/02/18 18:31 Dose: 3 ml Artificial Tears (Artificial Tears) 1 drop OU DAILY [facility] Last Admin: 06/03/18 09:16 Dose: 1 units Budesonide (Pulmicort Respules) 0.5 mg IH RBID [facility] Last Admin: 06/03/18 07:34 Dose: 0.5 mg Dextrose (Dextrose 50% Inj) 0 ml IV STAT PRN; Protocol PRN Reason: Hypoglycemia Protocol Dextrose (Glutose 15) 0 gm PO ONCE PRN; Protocol PRN Reason: Hypoglycemia Protocol Glucagon (Glucagen Diagnostic Kit) 0 mg IM STAT PRN; Protocol PRN Reason: Hypoglycemia Protocol Guaifenesin (Mucinex La) 600 mg PO Q12 PRN PRN Reason: congestion Last Admin: 06/02/18 17:29 Dose: 600 mg Home Med (Efinaconazole [Jublia]) 1 applic TP HS [facility] Home Med (Emtricitabine/Tenofov Alafenam [Descovy 200-25 Mg Tablet]) 1 each PO DAILY [facility] Last Admin: 06/03/18 09:19 Dose: 1 each Home Med (Rilpivirine Hcl [Edurant]) 25 mg PO DAILYWM [facility] Last Admin: 06/03/18 09:20 Dose: 25 mg Ceftriaxone Sodium 1 gm/ (Sodium Chloride) 100 mls @ 100 mls/hr IVPB DAILY [facility]; Protocol Last Admin: 06/03/18 09:21 Dose: 100 mls/hr Dextrose/Sodium Chloride (Dextrose 5%/0.45% Ns 1000 Ml) 1,000 mls @ 80 mls/hr IV .[id number] [facility] Stop: 06/03/18 22:03 Last Admin: 06/02/18 23:26 Dose: 80 mls/hr Insulin Detemir (Levemir) 10 units SC HS [facility] Last Admin: 06/02/18 23:47 Dose: Not Given Insulin Human Lispro (Humalog) 7 units SC TID [facility] Last Admin: 06/03/18 14:35 Dose: 7 u Insulin Human Lispro (Humalog) 0 units SC ACCU-CHECK [facility]; Protocol Last Admin: 06/03/18 14:35 Dose: Not Given Ketorolac Tromethamine (Toradol) 30 mg IVP Q6 PRN PRN Reason: Pain, severe (8-10) Raltegravir (Isentress) 400 mg PO BID [facility]; Protocol Last Admin: 06/03/18 09:20 Dose: 400 mg - Labs Labs: 06/03/18 06:19 06/03/18 06:19 PT 13.8 Seconds (9.8-13.1) H 06/02/18 06:01 INR 1.2 06/02/18 06:01 APTT 33.0 Seconds (25.6-37.1) 06/02/18 06:01 - Constitutional Appears: No Acute Distress - Head Exam Head Exam: NORMOCEPHALIC - Eye Exam Eye Exam: Normal appearance - ENT Exam ENT Exam: Mucous Membranes Moist - Respiratory Exam Respiratory Exam: NORMAL BREATHING PATTERN - Cardiovascular Exam Cardiovascular Exam: +S1, +S2 - GI/Abdominal Exam GI & Abdominal Exam: Soft - Neurological Exam Neurological Exam: Alert, Awake, Oriented x3 - Psychiatric Exam Psychiatric exam: Normal Mood - Skin Additional comments: left anterior gaitan hematoma, stable Assessment and Plan - Assessment and Plan (Free Text) Assessment: 82M with left anterior gaitan hematoma, stable Plan: -Patient appeared to be on both Eliquis and Plavix. At this time, would recommend choosing only one. -Hematoma is stable, no longer appears to be expanding - C/w Jeremy wrap for time being -No need for ice packs over affected site -Patient is clear for discharge from a surgical standpoint D/w Dr. Don Johnson PGY3
--- NOTE | 2018-06-03 19:31 | PQF ---
PROVIDER RESPONSE TEXT: Chronic Afib REVIEWER QUERY TEXT: Atrial Fibrillation Type Atrial fibrillation is documented in the Medical Record. Please specify the type Such as: -- Chronic -- Paroxysmal -- Permanent -- Persistent -- Other, please specify H and P: includes: pmhx of a-fib on anti-coagulants The patient's Clinical Indicators include: ---- Query created by: Nataliya Mckeon on 06/03/2018 2:29 PM Electronically signed by: 06/03/2018 7:28 PM
--- NOTE | 2018-06-03 19:31 | PQF ---
PROVIDER RESPONSE TEXT: Provider was unable to determine a response for this query. REVIEWER QUERY TEXT: HIV Clarification and Associated Conditions HIV (Human immunodeficiency virus) is documented in the medical record. Please specify the type Such as: -- Symptomatic -- Asymptomatic --AIDS -- With current or previous HIV-related condition (please specify related condition) -- Exposure to HIV -- Inconclusive serologic evidence of HIV -- Other, please specify Also please include any associated conditions, if applicable. H and P: includes: Hx of HIV Cont. home meds Descovy 200-25mg 1 tab PO QD Raltegravir Potassium 400mg 1 tab PO Q12 Rilpivirine Hcl 25mg PO QD Sulfamethoxazole-Trimethoprim 200-40 20mL one time MWF The patient's Clinical Indicators include: -- Query created by: Nataliya Mckeon on 06/03/2018 2:21 PM Electronically signed by: 06/03/2018 7:28 PM
[2018-06-03] MEDS: Insulin Detemir 100 Units/ml Inj SC SCH (22:42)
[2018-06-04] MEDS: Budesonide 0.5 mg/2 ml Inhal Susp UD IH SCH (07:19)
[2018-06-04] MEDS: Insulin Lispro (humaLOG) 100 Units/ml Inj SC SCH ×4 (07:37→15:50)
[2018-06-04] MEDS: RILPIVIRINE HCL 25 MG PO SCH (10:12)
[2018-06-04] MEDS: TENOFOV ALAFENAM PO SCH (10:13)
[2018-06-04] MEDS: EMTRICITABINE PO SCH (10:13)
[2018-06-04] MEDS: Artificial Tears Opht Soln OU SCH (10:36)
--- NOTE | 2018-06-04 12:11 | CP.PCM.DIS ---
Provider - Provider Date of Admission: 06/01/18 05:24 Attending physician: Adrian Cuevas MD Consults: 06/02/18 12:43 Wound Care [Nursing Referral for Wound Care] Routine Comment: Physician Instructions: Reason For Exam: altaf 14 06/01/18 05:25 Surgical [General Surgery Consult] Stat Comment: Consulting Provider: Marques Ochoa Consulting Physician: Marques Ochoa Reason for Consult: left lower leg expanding hematoma Time Spent in preparation of Discharge (in minutes): 30 Hospital Course - Lab Results Lab Results: Micro Results 06/02/18 10:37 Urine Urine Culture - Final Escherichia Coli Most Recent Lab Values WBC 8.5 K/uL (4.8-10.8) D 06/03/18 06:19 RBC 3.74 Mil/uL (4.40-5.90) L 06/03/18 06:19 Hgb 12.3 g/dL (12.0-18.0) 06/03/18 06:19 Hct 36.9 % (35.0-51.0) 06/03/18 06:19 MCV 98.7 fl (80.0-94.0) H 06/03/18 06:19 MCH 32.9 pg (27.0-31.0) H 06/03/18 06:19 MCHC 33.4 g/dL (33.0-37.0) 06/03/18 06:19 RDW 14.0 % (11.5-14.5) 06/03/18 06:19 Plt Count 202 K/uL (130-400) 06/03/18 06:19 MPV 7.1 fl (7.2-11.7) L 06/02/18 06:01 Neut % (Auto) 53.6 % (50.0-75.0) 06/02/18 06:01 Lymph % (Auto) 21.8 % (20.0-40.0) 06/02/18 06:01 Maries % (Auto) 21.7 % (0.0-10.0) H 06/02/18 06:01 Eos % (Auto) 2.5 % (0.0-4.0) 06/02/18 06:01 Baso % (Auto) 0.4 % (0.0-2.0) 06/02/18 06:01 Neut # (Auto) 1.9 K/uL (1.8-7.0) 06/02/18 06:01 Lymph # (Auto) 0.8 K/uL (1.0-4.3) L 06/02/18 06:01 Maries # (Auto) 0.8 K/uL (0.0-0.8) 06/02/18 06:01 Eos # (Auto) 0.1 K/uL (0.0-0.7) 06/02/18 06:01 Baso # (Auto) 0.0 K/uL (0.0-0.2) 06/02/18 06:01 Neutrophils % (Manual) 48 % (42-75) 06/02/18 06:01 Lymphocytes % (Manual) 24 % (20-50) 06/02/18 06:01 Monocytes % (Manual) 26 % (0-10) H 06/02/18 06:01 Eosinophils % (Manual) 2 % (0-7) 06/02/18 06:01 Platelet Estimate Normal (NORMAL) 06/02/18 06:01 Plt Clumps, EDTA Present 06/02/18 06:01 Large Platelets Present 06/02/18 06:01 Hypochromasia (manual) Slight 06/02/18 06:01 PT 13.8 Seconds (9.8-13.1) H 06/02/18 06:01 INR 1.2 06/02/18 06:01 APTT 33.0 Seconds (25.6-37.1) 06/02/18 06:01 Sodium 133 mmol/l (132-148) 06/03/18 06:19 Potassium 5.0 MMOL/L (3.6-5.0) 06/03/18 06:19 Chloride 102 mmol/L (98-107) 06/03/18 06:19 Carbon Dioxide 21 mmol/L (22-30) L 06/03/18 06:19 Anion Gap 15 (10-20) 06/03/18 06:19 BUN 20 mg/dl (9-20) 06/03/18 06:19 Creatinine 1.2 mg/dl (0.8-1.5) 06/03/18 06:19 Est GFR ( Amer) > 60 06/03/18 06:19 Est GFR (Non-Af Amer) 58 06/03/18 06:19 POC Glucose (mg/dL) 187 mg/dL (65-110) H 06/04/18 10:58 Random Glucose 217 mg/dL (75-110) H 06/03/18 06:19 Calcium 8.5 mg/dL (8.4-10.2) 06/03/18 06:19 Urine Color Yellow (YELLOW) 06/02/18 10:37 Urine Clarity Turbid (Clear) 06/02/18 10:37 Urine pH 6.0 (5.0-8.0) 06/02/18 10:37 Ur Specific [place] 1.025 (1.003-1.030) 06/02/18 10:37 Urine Protein 30 mg/dL (NEGATIVE) 06/02/18 10:37 Urine Glucose (UA) Neg mg/dL (NEGATIVE) 06/02/18 10:37 Urine Ketones Negative mg/dL (NEGATIVE) 06/02/18 10:37 Urine Blood Negative (NEGATIVE) 06/02/18 10:37 Urine Nitrate Negative (NEGATIVE) 06/02/18 10:37 Urine Bilirubin Negative (NEGATIVE) 06/02/18 10:37 Urine Urobilinogen 0.2-1.0 mg/dL (0.2-1.0) 06/02/18 10:37 Ur Leukocyte Esterase Large Roque/uL (Negative) 06/02/18 10:37 Urine RBC (Auto) 4 /hpf (0-3) H 06/02/18 10:37 Urine Microscopic WBC 870 /hpf (0-5) H 06/02/18 10:37 Ur Squamous Epith Cells 1 /hpf (0-5) 06/02/18 10:37 Urine Bacteria Mod (<OCC) H 06/02/18 10:37 - Hospital Course Hospital Course: 82 y/o M with No relevant PMHx admitted for left lower extremity hematoma and UTI. Daily compression dressing of the left leg deonna bandage and DSD was done. Patient was followed up by surgery team to follow up the left leg hematoma. Patient received a course of abx for his UTI; Ceftriaxone 1gm IV QD, today is day 3. Patient rceived percocet 325/5mg tab for pain discontinued after 1 day, Toradol 30 mg and Tylanol 325mg PO for pain, Anticoagulant medications were held due to left LE expanding hematoma. Patient continued with his other home medications. Patient left lower extremity improved. Left LE Hematoma improved. Patient is stable now. During his hospital course; Patient didn't have any acute events or distress. Patient discharged to residential on 5 more days of IV Ceftriaxone 1gm QD. Hold the anticoagulant for 3 more days. Patient daughter to discuss with his carrier washer risks vs benefits of continuing anticoagulants (Brilinta or plavix) Assessment: 82 y/o male patient seen and evaluated at the [facility] for hematoma of left lopes of Tibia and UTI Plan: Left Lopes Hematoma Acute CT of left tibia and fibula: superficial subcutaneuos anterior mid neck soft tissue hematoma w/ active contrast extravasation suggestive of active bleeding. No fractures. X-ray left ankle: No bone anomalies. Surgery consult on board; appreciate recs: C/W compression wrap with deonna bandage, ice packs, elevate leg above heart level. No surgical needed. According to surgery patient is cleared to discharge from the surgery stand point. Hold anti-coagulation for 3 more days Patient daughter to discuss with his carrier washer to put him on one of the 2 anticoagulants that he was originally on (Brilinta or plavix) UTI Urine Cx; E.Coli Urine WBCs; 870 Leukocyte Esterase; +ve, large Ceftriaxone 1 gm IV QD (day 3), Continue for 5 more days after discharge Discharge Exam - Head Exam Head Exam: NORMOCEPHALIC Discharge Plan - Discharge Medications Prescriptions: cefTRIAXone 1 gm [Rocephin 1 gram IVPB (D5W)] 1 gm IVPB DAILY 5 Days #1 bag - Follow Up Plan Condition: STABLE Disposition: OTHER INSTITUTION Instructions: Preventing Falls in the Older Adult, Urinary Tract Infection in Women (DC), Urinary Tract Infection in Men (DC), Dysuria (GEN) Referrals: Marques Ochoa MD [Staff Provider] - Franklin Wilkerson MD [Staff Provider] -
[2018-06-04 16:33] VITALS: BP 118/56; PULSE 78; RESP 20; TEMP 97.7; O2SAT 98
--- NOTE | 2018-06-05 20:43 | PQF ---
PROVIDER RESPONSE TEXT: Provider was unable to determine a response for this query. REVIEWER QUERY TEXT: Skin Ulcer Type and Severity Skin ulcer is documented in the Medical Record. Please specify the type and severity Such as: Type: -- Pressure ulcer -- Diabetic skin ulcer -- Venous stasis ulcer -- Other, please specify Severity: -- Limited to breakdown of skin -- With fat layer exposure -- With necrosis of muscle -- With necrosis of bone -- Other, please specify The patient's Clinical Indicators include: History and Physical integumentary section "stage 2 ulcer rt buttock." Query created by: Nia Quach on 06/05/2018 12:55 PM Electronically signed by: Adrian Cuevas MD 06/05/2018 8:40 PM
== END 2018-06-04 17:00 | DRG 605 ==
LOC: H.ER 23:43 → H.ERHOLD 06-01 05:24 → H.MEDSURG1 06-01 08:39
PROVIDERS: ADMIT Internal Medicine; ATTEND Internal Medicine
PROC: 0JJW3ZZ Inspection of Lower Extremity Subcutaneous Tissue and Fascia, Percutaneous Approach (ICD-10-PCS; principal; 2018-06-03)
DX: S80.12XA Contusion of left lower leg, initial encounter (principal); N39.0 Urinary tract infection, site not specified; I48.2 Chronic atrial fibrillation; Z79.01 Long term (current) use of anticoagulants; Z79.02 Long term (current) use of antithrombotics/antiplatelets; Z86.73 Personal history of transient ischemic attack (TIA), and cerebral infarction without residual deficits; I25.10 Atherosclerotic heart disease of native coronary artery without angina pectoris; Z95.1 Presence of aortocoronary bypass graft; J45.909 Unspecified asthma, uncomplicated; E11.51 Type 2 diabetes mellitus with diabetic peripheral angiopathy without gangrene; Z79.4 Long term (current) use of insulin; Z21 Asymptomatic human immunodeficiency virus [HIV] infection status; B96.20 Unspecified Escherichia coli [E. coli] as the cause of diseases classified elsewhere; I10 Essential (primary) hypertension; W19.XXXA Unspecified fall, initial encounter

== ENCOUNTER 2018-06-09 15:58 | Emergency (ER) | payer MEDICARE, MEDICAID ==
[2018-06-09 15:58] VITALS: BMI 29.1
--- NOTE | 2018-06-09 16:30 | ED PDOC ---
Lower Extremity Pain/Injury Time Seen by Provider: 06/09/18 16:12 Chief Complaint (Nursing): Lower Extremity Problem/Injury History Per: Family Onset/Duration Of Symptoms: Days (2) Current Symptoms Are (Timing): Still Present Severity: Moderate Additional Complaint(s): Redness and swelling left pretibial area x 2 days. Dc'ed from hospital recently s/p evacuation hematoma same area after trauma at [facility] [place] [facility]. On IV Rocephin for UTI. Daughter denies fever or new injury Past Medical History Vital Signs: Last Vital Signs Temp 99.1 F 06/09/18 16:04 Pulse 60 06/09/18 16:04 Resp 16 06/09/18 16:04 BP 153/56 H 06/09/18 16:04 Pulse Ox 98 06/09/18 16:04 - Medical History PMH: Asthma, Atrial Fibrillation, CAD, CHF, CVA, HIV, HTN, Hypercholesterolemia, TIA Denies: Chronic Kidney Disease - Surgical History Surgical History: CABG, Pacemaker - Family History Family History: States: Unknown Family Hx - Immunization History Hx Tetanus Toxoid Vaccination: No (unknown) Hx Influenza Vaccination: No (unknown) Hx Pneumococcal Vaccination: No (unknown) - Home Medications Home Medications: Ambulatory Orders Medication Instructions Recorded Budesonide [Pulmicort Respules] 0.5 mg IH BID 10/06/17 Efinaconazole [Jublia] 1 applic TP HS 10/06/17 Insulin Detemir [Levemir] 10 unit SC HS 10/06/17 Propylene Glycol/Peg 400 [Systane 1 drop BOTHEYES DAILY 10/06/17 0.3-0.4% Eye Drops] Rilpivirine HCl [Edurant] 25 mg PO DAILY 10/06/17 Albuterol/Ipratropium [Duoneb 3 3 ml IH RQ6 PRN neb 10/17/17 mg/0.5 mg (3 ml) UD] Insulin Aspart [Novolog Flexpen] 7 unit SC TID 10/23/17 Emtricitabine/Tenofov Alafenam 1 each PO DAILY #30 tablet 10/28/17 [Descovy 200-25 mg Tablet] Raltegravir Potassium [Isentress] 400 mg PO BID #60 tab 10/28/17 Guaifenesin [Mucinex] 1 tab PO Q12 PRN 06/01/18 cefTRIAXone 1 gm [Rocephin 1 gram 1 gm IVPB DAILY 5 Days #1 bag 06/04/18 IVPB (D5W)] Cephalexin [Keflex] 500 mg PO QID #20 capsule 06/09/18 - Allergies Allergies/Adverse Reactions: Allergies Allergy/AdvReac Type Severity Reaction Status Date / Time No Known Allergies Allergy Verified 10/06/17 17:52 Review of Systems Review Of Systems: ROS cannot be obtained secondary to pt's inabilty to answer questions. Physical Exam - Reviewed Nursing Documentation Reviewed: Yes Vital Signs Reviewed: Yes - Physical Exam Appears: Positive for: Non-toxic, No Acute Distress Head Exam: Positive for: ATRAUMATIC, NORMAL INSPECTION, NORMOCEPHALIC Skin: Positive for: Normal Color, Warm, DRY Eye Exam: Positive for: EOMI, Normal appearance, PERRL ENT: Positive for: Normal ENT Inspection Neck: Positive for: Normal, Painless ROM Cardiovascular/Chest: Positive for: Regular Rate, Rhythm Respiratory: Positive for: CNT, Normal Breath Sounds Gastrointestinal/Abdominal: Positive for: Normal Exam, Soft Back: Positive for: Normal Inspection Extremity: Positive for: Other (Left lower ext. Pretibial swelling and fluctuance with surrounding erythema. No drainage) Neurologic/Psych: Positive for: Alert, Oriented - ECG O2 Sat by Pulse Oximetry: 98 Medical Decision Making Medical Decision Making: Evaluated by Dr. Ochoa. Does not believe that swelling is from abscess but rather hematoma. Does not need to be drained. No need for CT or blood work. Can be dc'ed on Keflex x 5 more days. Disposition - Clinical Impression Clinical Impression: Hematoma - Patient ED Disposition Is Patient to be Admitted: No Counseled Patient/Family Regarding: Diagnosis, Need For Followup, Rx Given - Disposition Referrals: Marques Ochoa MD [Staff Provider] - Disposition: Routine/Home Disposition Time: 16:54 Condition: FAIR Prescriptions: Cephalexin [Keflex] 500 mg PO QID #20 capsule Instructions: Contusion (DC) Forms: [employer] ([place]ian)
[2018-06-09] MEDS ORDERED: Vancomycin 1 g Inj ONE (16:59)
[2018-06-10 04:13] VITALS: BP 150/71; PULSE 63; RESP 16; TEMP 98.2; O2SAT 98
== END 2018-06-09 20:15 | disposition home or self-care (01) ==
LOC: H.ER 15:58
DX: S80.12XA Contusion of left lower leg, initial encounter (principal); Y92.89 Other specified places as the place of occurrence of the external cause

== ENCOUNTER 2018-06-11 12:24 | Observation (INO) | payer MEDICARE, MEDICAID ==
[2018-06-11 12:24] VITALS: BMI 29.1
[2018-06-11 13:51] LABS: BASO % 0.4 % (0.0-2.0); EOS # 0.1 K/uL (0.0-0.7); EOS % 1.1 % (0.0-4.0); HEMOGLOBIN 11.4 g/dL (12.0-18.0); LYMPH % 16.5 % (20.0-40.0); MEAN CELL VOLUME 99.3 fl (80.0-94.0); MEAN CORPUSCULAR HEMOGLOBIN 33.3 pg (27.0-31.0); MEAN CORPUSCULAR HGB CONC 33.5 g/dL (33.0-37.0); MEAN PLATELET VOLUME 6.8 fl (7.2-11.7); MONO % 15.7 % (0.0-10.0); NEUT # 4.1 K/uL (1.8-7.0); NEUT % 66.3 % (50.0-75.0); NRBC % 0.1 % (0.0-0.0); RBC 3.41 Mil/uL (4.40-5.90); RED CELL DISTRIBUTION WIDTH 14.3 % (11.5-14.5); WHITE BLOOD COUNT 6.1 K/uL (4.8-10.8)
[2018-06-11 13:58] LABS: ALB/GLOB RATIO 1.1 (1.0-2.1); ALBUMIN 3.3 g/dL (3.5-5.0); AST/SGOT 24 U/L (17-59); BLOOD UREA NITROGEN 18 mg/dl (9-20); CALCIUM 8.4 mg/dL (8.4-10.2); GFR NON-AFRICAN AMERICAN 58
--- NOTE | 2018-06-11 14:04 | RAD ---
Date of service: 06/11/2018 PROCEDURE: HISTORY: fall COMPARISON: None TECHNIQUE: Three views FINDINGS: No fracture or dislocation appreciated. No elbow joint effusion appreciated. Medial elbow joint line ulnar spurring noted. Lateral epicondylar cortical hyperostoses and palpable blending calcific tendinopathy here posterior olecranon spurring and blending triceps calcific tendinopathy suggested. A lateral subcortical distal humeral diaphysis CO-metaphyseal radiolucent lesion without pathological fracture is noted this measures 1.9 x 0.4 cm on series [id number], image 5 and 1.5 by 0.9 cm on series [id number], image 6. Its etiology is indeterminate-a lytic or a benign intra osseous subcortical cyst is another consideration. Its chronicity is unknown. The surrounding soft tissues appear unremarkable here At the forearm extensive arterial vascular calcification noted. IMPRESSION: No fracture or dislocation. No effusion. Eccentric radiolucent lesion geographic lateral distal humeral diaphyseal metaphyseal humerus without pathological fracture. Its chronicity an its clinical significance, if any-is unknown. Clinical follow-up as needed recommended. 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 Calcific tendinopathy changes as above.
[2018-06-11 14:10] LABS: ALT/SGPT 30 U/L (21-72)
--- NOTE | 2018-06-11 15:44 | CT ---
Date of service: 06/11/2018 PROCEDURE: CT HEAD WITHOUT CONTRAST. HISTORY: r/o ICH COMPARISON: None TECHNIQUE: Axial computed tomography images were obtained through the head/brain without intravenous contrast. Radiation dose: Total exam DLP = 829.34 mGy-cm. This CT exam was performed using one or more of the following dose reduction techniques: Automated exposure control, adjustment of the mA and/or kV according to patient size, and/or use of iterative reconstruction technique. FINDINGS: HEMORRHAGE: A 1.2 cm rounded hyperdensity left lateral posterior left lateral ventricle which has some heterogeneity to its density-however the vast majority of these density components are greater than that expected for a small hematoma here. At also project deep in the regional sulcus here. It is less dense than the calvarial bone windows calvarial Hounsfield density readings. Because of this atypical hematoma here is believed less likely. A partly calcified mass with or without trace blood here is not entirely excluded. Significant appearing mass effect associated with it is seen. Is close to the cortex and sulci and hence its origin intra versus extra-axial here is also somewhat problematic. There may be trace peripheral edema and/or blending deep white matter surrounding microvascular ischemic changes here. This finding was directly discussed with Dr. Judd prior to starting this dictation at approximately 03:30 p.m.. BRAIN: No marked mass effect or marked edema seen. Generalized cerebral atrophy is noted. There is extensive deep white matter and subcortical hypodensity compatible with extensive microvascular disease findings are more pronounced on the right side than the left. More pronounced in the right frontal lobe than elsewhere. In addition chronic appearing infarcts deep white matter subcortical anterior limb of the internal capsule also is suggested Bilateral thalamic lacunar infarcts noted that on the right is more pronounced. And tiny bilateral basal ganglionic lacunar infarcts are present. VENTRICLES: Commensurate with the degree of atrophy right lateral ventricular asymmetrical dilatation compatible with greater ex vacuo changes associated with the suggested encephalomalacia changes here. CALVARIUM: Intact. No gross surrounding scalp hematoma seen. PARANASAL SINUSES: Moderate ethmoidal sinus mucosal inflammatory changes. MASTOID AIR CELLS: Unremarkable as visualized. No inflammatory changes. OTHER FINDINGS: None. IMPRESSION: No typical intracranial hemorrhage pronounced mass effect or midline shift. Extensive cerebral atrophy and extensive chronic appearing white matter and subcortical microvascular ischemic changes more pronounced in the right frontal lobe as above. Basal ganglia and thalamic lacunar infarcts noted. Approximately 1 cm hyperdensity in the left posterior frontal parietal region its intraparenchymal versus extra parenchymal origin is indeterminate. It does not have Hounsfield units typical for a hematoma here but rather higher density more typically seen with calcified lesions. The density however is less than the bony calvarium. Trace blood with a calcified lesion without significant mass effect is not excluded. Consider follow-up imaging. The incidental benign meningioma is not excluded. Ethmoidal sinusitis.
--- NOTE | 2018-06-11 15:55 | CT ---
Date of service: 06/11/2018 PROCEDURE: CT Cervical Spine without contrast HISTORY: trauma r/o fx COMPARISON: None available. TECHNIQUE: Axial computed tomography images were obtained of the cervical spine without the use of intravenous contrast. Coronal and sagittal reformatted images were created and reviewed. Radiation dose: Total exam DLP = 361.39 mGy-cm. This CT exam was performed using one or more of the following dose reduction techniques: Automated exposure control, adjustment of the mA and/or kV according to patient size, and/or use of iterative reconstruction technique. FINDINGS: VERTEBRAE: No fracture. Normal alignment. No destructive bony lesion. Endplate spondylosis most pronounced C5-6 DISCS/SPINAL CANAL/NEURAL FORAMINA: No significant central canal. Multilevel proximal foraminal compromise is from uncovertebral hypertrophy combine endplate spondylosis and facet hypertrophic changes noted. No severe neural foraminal stenosis appreciated.. Diffuse disc space narrowing most pronounced C5-6 as well. RF multilevel diffuse disc bulges most pronounced with disc osteophyte at 5 6. PARASPINAL SOFT TISSUES: Unremarkable. OTHER FINDINGS: Atherosclerotic vascular calcifications present. IMPRESSION: No fracture or subluxation. Cervical spondylosis and degenerative disc disease. With mild moderate foraminal compromises no severe stenosis
--- NOTE | 2018-06-11 16:02 | CT ---
Date of service: 06/11/2018 PROCEDURE: CT Lumbar Spine without contrast HISTORY: fall COMPARISON: None available. TECHNIQUE: Axial computed tomography images were obtained of the lumbar spine without the use of intravenous contrast. Coronal and sagittal reformatted images were created and reviewed. Radiation dose: Total exam DLP = 1349.9 mGy-cm. This CT exam was performed using one or more of the following dose reduction techniques: Automated exposure control, adjustment of the mA and/or kV according to patient size, and/or use of iterative reconstruction technique. FINDINGS: VERTEBRAE: No fracture. Minimal 1 to 2 mm stepladder like subluxations attributed to degenerative ligamentous laxity are noted at the L4-5 in minimally L5-S1 level. No spondylolysis noted. No fracture seen. DISCS/SPINAL CANAL/NEURAL FORAMINA: L1-2: Diffuse disc bulge. No spinal stenosis. L2-3: More pronounced disc bulge. Minimal encroachment central and lateral recesses and likely each proximal foramen. L3-4: Diffuse disc bulge probable short pedicles-osteophytosis. A mental flavum hypertrophy buckling-central stenosis mild to moderate, bilateral lateral recess and proximal foraminal stenosis. L4-5: Diffuse disc bulge, disc space narrowing. Bilateral facet hypertrophic arthrosis with ossific debris bordering the left facet hypertrophic changes. Ligamentum flavum thickening buckling. Endplate spondylosis more pronounced as is the disc margin along the left posterolateral to left lateral aspect. Greater encroachment on left lateral recess compared to the right side here noted. Canal in each lateral recess also compromised. Central stenosis is moderate to severe each lateral recess is moderately to severe stent stenotic as well left foraminal stenosis appears greatest L5-S1: . diffuse disc bulge. With slightly greater asymmetry towards the right. No central stenosis no left lateral recess a left foraminal stenosis. Mild to moderate right foraminal stenosis. PARASPINAL SOFT TISSUES: Unremarkable. OTHER FINDINGS: Extensive atherosclerotic vascular disease. The partly visualized on this exam is likely a distended bladder correlate clinically. IMPRESSION: No fracture or spondylolysis. The type minimal stepladder like malalignment. Multilevel spondylosis and degenerative disc disease. Multilevel disc bulging and facet hypertrophic changes. These combined pathologies compromise multiple lumbar levels and multiple compartments as detailed above. The greatest compromise appears at the L4-5 level. Distended bladder likely Correlate clinically
--- NOTE | 2018-06-11 16:17 | ED PDOC ---
HPI: Trauma/Fall - HPI Time Seen by Provider: 06/11/18 12:43 Chief Complaint (Nursing): Trauma Chief Complaint (Provider[facility] History Per: EMS, Family History/Exam Limitations: clinical condition Injury Occurred (Timing): Days Ago: (14) Severity: Moderate Additional Complaint(s): 82yo male arrives from SNF after fall 14 days ago w persistent pain, family wants evaluating in hospital per report. Pt noted to be on Eliquis per family and report. Had CVA last year. Mental status at baseline per report. C/o LLE pain, b/l elbow pain and generalized weakness. Past Medical History Reviewed: Historical Data, Nursing Documentation, Vital Signs Vital Signs: Last Vital Signs Temp 98.2 F 06/11/18 12:26 Pulse 61 06/11/18 12:26 Resp 18 06/11/18 12:26 BP 140/53 L 06/11/18 12:26 Pulse Ox 99 06/11/18 12:26 - Medical History PMH: Asthma, Atrial Fibrillation, CAD, CHF, CVA, HIV, HTN, Hypercholesterolemia, TIA Denies: Chronic Kidney Disease - Surgical History Surgical History: CABG, Pacemaker - Family History Family History: States: Unknown Family Hx - Living Arrangements Living Arrangements: [facility] - Social History Current smoker - smoking cessation education provided: No - Immunization History Hx Tetanus Toxoid Vaccination: No (unknown) Hx Influenza Vaccination: No (unknown) Hx Pneumococcal Vaccination: No (unknown) - Home Medications Home Medications: Ambulatory Orders Medication Instructions Recorded Budesonide [Pulmicort Respules] 0.5 mg IH Q12 10/06/17 Efinaconazole [Jublia] 1 applic TP 10/06/17 Insulin Detemir [Levemir] 10 unit SC 10/06/17 Propylene Glycol/Peg 400 [Systane 1 drop BOTHEYES DAILY 10/06/17 0.3-0.4% Eye Drops] Rilpivirine HCl [Edurant] 25 mg PO DAILY 10/06/17 Insulin Aspart [Novolog Flexpen] 7 unit SC AC 10/23/17 Guaifenesin [Mucinex] 1 tab PO Q12 PRN 06/01/18 Acetaminophen [Tylenol 325mg tab] 650 mg PO Q4 PRN 06/11/18 Acetaminophen [Tylenol 325mg tab] 650 mg PO Q4 PRN 06/11/18 Albuterol/Ipratropium [Duoneb 3 3 ml IH RQ6 PRN 06/11/18 mg/0.5 mg (3 ml) UD] Apixaban [Eliquis] 5 mg PO Q12 06/11/18 Aspirin [[place] Aspirin] 81 mg PO DAILY 06/11/18 Bacitracin OINT 1 appl TOP DAILY 06/11/18 Cephalexin [Keflex] 500 mg PO Q12 06/11/18 Emtricitabine/Tenofov Alafenam 1 tab PO DAILY 06/11/18 [Descovy 200-25 mg Tablet] Mag Hydrox/Aluminum Hyd/Simeth 30 ml PO Q4 PRN 06/11/18 [Maalox Advanced Suspension] Magnesium Hydroxide [Milk Of 30 ml PO DAILY PRN 06/11/18 Magnesia] Raltegravir Potassium [Isentress] 400 mg PO Q12 06/11/18 Sulfamethoxazole/Trimethoprim 20 ml PO MWF 06/11/18 [Bactrim 200mg-40mg/5mL Susp] - Allergies Allergies/Adverse Reactions: Allergies Allergy/AdvReac Type Severity Reaction Status Date / Time No Known Allergies Allergy Verified 10/06/17 17:52 Review of Systems Review Of Systems: ROS cannot be obtained secondary to pt's inabilty to answer q uestions. (dementia) Physical Exam - Reviewed Nursing Documentation Reviewed: Yes Vital Signs Reviewed: Yes - Physical Exam Appears: Positive for: Non-toxic Head Exam: Positive for: ATRAUMATIC, NORMAL INSPECTION, NORMOCEPHALIC Skin: Positive for: Normal Color, Warm, DRY Eye Exam: Positive for: EOMI, Normal appearance, PERRL ENT: Positive for: Normal ENT Inspection Neck: Positive for: Normal, Painless ROM Cardiovascular/Chest: Positive for: Regular Rate, Rhythm Respiratory: Positive for: Normal Breath Sounds. Negative for: Decreased Breath Sounds Gastrointestinal/Abdominal: Positive for: Soft. Negative for: Tenderness Back: Positive for: Normal Inspection Extremity: Positive for: Normal ROM, Swelling (LLE small subcutaneous hematoma, b/l elbow small ecchymosis, FROM), Other Neurologic/Psych: Positive for: Alert, Oriented. Negative for: Motor/Sensory Deficits - Laboratory Results Result Diagrams: 06/11/18 13:20 06/11/18 13:20 Lab Results: Total Bilirubin 0.4 mg/dl (0.2-1.3) 06/11/18 13:20 AST 24 U/L (17-59) 06/11/18 13:20 ALT 30 U/L (21-72) 06/11/18 13:20 Alkaline Phosphatase 65 U/L (38-126) 06/11/18 13:20 Total Protein 6.4 G/DL (6.3-8.2) 06/11/18 13:20 Albumin 3.3 g/dL (3.5-5.0) L 06/11/18 13:20 Globulin 3.1 gm/dL (2.2-3.9) 06/11/18 13:20 Albumin/Globulin Ratio 1.1 (1.0-2.1) 06/11/18 13:20 - ECG ECG: Positive for: Interpreted By Wa ECG Rhythm: Positive for: Venticular Paced Rate: 60 O2 Sat by Pulse Oximetry: 99 Pulse Ox Interpretation: Normal - Radiology X-Ray: Read By Radiologist X-Ray Interpretation: Other (neg fractures b/l elbows) Medical Decision Making Medical Decision Making: labs clinically unremarkable Accession No. : [id number] Patient Name / ID : RAMON ANGELES / [id number] Exam Date : 06/11/2018 14:58:33 ( Approved ) Study Comment : Sex / Age : M / 82Y Creator : Thu Correia Dictator : Thu Correia American History Professor : Network Account Manager : Thu Correia Approver2 : Report Date : 06/11/2018 15:41:33 My Comment : Date of service: 06/11/2018 PROCEDURE: CT HEAD WITHOUT CONTRAST. HISTORY: r/o ICH COMPARISON: None TECHNIQUE: Axial computed tomography images were obtained through the head/brain without intravenous contrast. Radiation dose: Total exam DLP = 829.34 mGy-cm. This CT exam was performed using one or more of the following dose reduction techniques: Automated exposure control, adjustment of the mA and/or kV according to patient size, and/or use of iterative reconstruction technique. FINDINGS: HEMORRHAGE: A 1.2 cm rounded hyperdensity left lateral posterior left lateral ventricle which has some heterogeneity to its density-however the vast majority of these density components are greater than that expected for a small hematoma here. At also project deep in the regional sulcus here. It is less dense than the calvarial bone windows calvarial Hounsfield density readings. Because of this atypical hematoma here is believed less likely. A partly calcified mass with or without trace blood here is not entirely excluded. Significant appearing mass effect associated with it is seen. Is close to the cortex and sulci and hence its origin intra versus extra-axial here is also somewhat problematic. There may be trace peripheral edema and/or blending deep white matter surrounding microvascular ischemic changes here. This finding was directly discussed with Dr. Judd prior to starting this dictation at approximately 03:30 p.m.. BRAIN: No marked mass effect or marked edema seen. Generalized cerebral atrophy is noted. There is extensive deep white matter and subcortical hypodensity compatible with extensive microvascular disease findings are more pronounced on the right side than the left. More pronounced in the right frontal lobe than elsewhere. In addition chronic appearing infarcts deep white matter subcortical anterior limb of the internal capsule also is suggested Bilateral thalamic lacunar infarcts noted that on the right is more pronounced. And tiny bilateral basal ganglionic lacunar infarcts are present. VENTRICLES: Commensurate with the degree of atrophy right lateral ventricular asymmetrical dilatation compatible with greater ex vacuo changes associated with the suggested encephalomalacia changes here. CALVARIUM: Intact. No gross surrounding scalp hematoma seen. PARANASAL SINUSES: Moderate ethmoidal sinus mucosal inflammatory changes. MASTOID AIR CELLS: Unremarkable as visualized. No inflammatory changes. OTHER FINDINGS: None. IMPRESSION: No typical intracranial hemorrhage pronounced mass effect or midline shift. Extensive cerebral atrophy and extensive chronic appearing white matter and subcortical microvascular ischemic changes more pronounced in the right frontal lobe as above. Basal ganglia and thalamic lacunar infarcts noted. Approximately 1 cm hyperdensity in the left posterior frontal parietal region its intraparenchymal versus extra parenchymal origin is indeterminate. It does not have Hounsfield units typical for a hematoma here but rather higher density more typically seen with calcified lesions. The density however is less than the bony calvarium. Trace blood with a calcified lesion without significant mass effect is not excluded. Consider follow-up imaging. The incidental benign meningioma is not excluded. Ethmoidal sinusitis. XRay tibia neg fracture on my read US duplex LLE pending, patient is on oral AC already d/w neuro corporate health consultant Dr Sanchez, hold eliquis and obtain repeat CT in am Family aware of results and plan, questions answered Admit Dr Pool / Angelo Rubalcava aware Disposition - Clinical Impression Clinical Impression: Head injury, Fall, Hematoma of left lower extremity - Patient ED Disposition Is Patient to be Admitted: Yes Counseled Patient/Family Regarding: Studies Performed, Diagnosis - Disposition Disposition Time: 15:30 Condition: STABLE - Pt Status Changed To: Hospital Disposition Of: Observation (admit [place] Dr Pool/ [place]) - POA Present On Arrival: Falls Or Trauma
[2018-06-11] MEDS ORDERED: guaiFENesin 600 mg ER Tab PO PRN ×2 (17:35→19:00)
[2018-06-11] MEDS ORDERED: Magnesium Hydroxide Susp 30 ml UD PO PRN (17:35)
[2018-06-11] MEDS ORDERED: Alum-Mag Hydrox-Simethicone Susp (30 mL) PO PRN (17:35)
[2018-06-11] MEDS ORDERED: Albuterol-Ipratrop 3 mg / 0.5 (3 ml) UD IH PRN (17:35)
--- NOTE | 2018-06-11 18:35 | RAD ---
Date of service: 06/11/2018 PROCEDURE: Radiographs of the left tibia and fibula. HISTORY: fall LLE edema COMPARISON: None available. TECHNIQUE: Frontal and lateral views obtained. FINDINGS: BONES: No fracture or destructive lesion. JOINT SPACES: Unremarkable. OTHER FINDINGS: Anterior pretibial soft tissue swelling. No underlying osseous abnormality. IMPRESSION: Soft tissue swelling without acute articular or osseous abnormality.
[2018-06-11 18:46] VITALS: PULSE 60
[2018-06-11] MEDS ORDERED: Insulin Detemir 100 Units/ml Inj SC SCH (22:00)
[2018-06-11] MEDS ORDERED: EFINACONAZOLE TP SCH (22:00)
[2018-06-11] MEDS ORDERED: Patient's Own Med (Insulin Detemir [Levemir] 10 UNIT) SC SCH (22:00)
[2018-06-11] MEDS: Budesonide 0.5 mg/2 ml Inhal Susp UD IH SCH (22:20)
[2018-06-12 06:45] LABS: BASO % 0.5 % (0.0-2.0); EOS # 0.2 K/uL (0.0-0.7); HEMOGLOBIN 11.4 g/dL (12.0-18.0); LYMPH % 19.5 % (20.0-40.0); MEAN CORPUSCULAR HEMOGLOBIN 33.2 pg (27.0-31.0); MEAN CORPUSCULAR HGB CONC 33.6 g/dL (33.0-37.0); MEAN PLATELET VOLUME 6.9 fl (7.2-11.7); MONO # 0.8 K/uL (0.0-0.8); MONO % 15.2 % (0.0-10.0); NEUT # 3.2 K/uL (1.8-7.0); NEUT % 61.8 % (50.0-75.0); NRBC % 0.1 % (0.0-0.0); RBC 3.45 Mil/uL (4.40-5.90); WHITE BLOOD COUNT 5.2 K/uL (4.8-10.8)
[2018-06-12 06:50] LABS: ALBUMIN 3.3 g/dL (3.5-5.0); ALT/SGPT 31 U/L (21-72); AST/SGOT 22 U/L (17-59); BLOOD UREA NITROGEN 16 mg/dl (9-20); CALCIUM 8.6 mg/dL (8.4-10.2); GFR NON-AFRICAN AMERICAN > 60
[2018-06-12] MEDS: Budesonide 0.5 mg/2 ml Inhal Susp UD IH SCH ×2 (07:21→19:13)
[2018-06-12] MEDS ORDERED: INSULIN ASPART 7 UNIT SC SCH (07:30)
[2018-06-12] MEDS: Insulin Lispro (humaLOG) 100 Units/ml Inj SC SCH ×3 (08:56→16:55)
[2018-06-12] MEDS ORDERED: Bacitracin OINT 15GM TOP SCH (09:00)
[2018-06-12] MEDS ORDERED: Artificial Tears Opht Soln OU SCH (09:00)
[2018-06-12] MEDS ORDERED: Patient's Own Med (Emtricitabine/Tenofov Alafenam [Descovy 200-25 Mg Tablet] 1 TAB) PO SCH (09:00)
[2018-06-12] MEDS ORDERED: Tmp-Smz 200-40mg/5 ml Oral Sus(120 ml) PO SCH (09:00)
[2018-06-12] MEDS ORDERED: RILPIVIRINE HCL 25 MG PO SCH (09:00)
--- NOTE | 2018-06-12 09:44 | CT ---
Date of service: 06/12/2018 PROCEDURE: CT HEAD WITHOUT CONTRAST. HISTORY: fall, r/o bleed COMPARISON: None available. TECHNIQUE: Axial computed tomography images were obtained through the head/brain without intravenous contrast. Radiation dose: Total exam DLP = 877.64 mGy-cm. This CT exam was performed using one or more of the following dose reduction techniques: Automated exposure control, adjustment of the mA and/or kV according to patient size, and/or use of iterative reconstruction technique. FINDINGS: HEMORRHAGE: No intracranial hemorrhage. BRAIN: Chronic lobar infarction right frontal lobe reiterated. 1.3 cm densely calcified lesion left parietal lobe again evident reflecting potential intraparenchymal meningioma, which is favored over other calcified lesions. Diffuse cerebral atrophy chronic microangiopathy are reiterated as well as chronic lacunes affecting bilateral basal ganglia and thalami. No interval suspicious acute intracranial findings. VENTRICLES: Unremarkable. No hydrocephalus. CALVARIUM: No destructive bony lesion or displaced fracture identified including through the skullbase. PARANASAL SINUSES: Unremarkable as visualized. No significant inflammatory changes. MASTOID AIR CELLS: Unremarkable as visualized. No inflammatory changes. OTHER FINDINGS: None. IMPRESSION: 1. No definite acute subacute findings appreciated in the interval by standard CT criteria. 2. Stable chronic lobar infarction right frontal lobe as well as multiple chronic lacunes as discussed above. 3. Chronic calcified intraparenchymal left parietal meningioma or other calcific lesions stable. 4. Reiterated age related neuro degenerative findings.
--- NOTE | 2018-06-12 12:14 | CP.PCM.HP ---
History of Present Illness - History of Present Illness History of Present Illness: pt admitted after fall at [facility]. found to have ?? abn ct head on admission. all other bw reviewed. concern exists as pt on eliquis. denies complaints at present. appears at baseline. daughter at bedside who states pt is nonverbal non ambulatory. daughter concerned as pt is congested that he might have aspiration pna-which he has had in past. nof /c, n/v/d. no cough noted. lungs clear. cxr pending. case d/c w/ dr morrell Present on Admission - Present on Admission Any Indicators Present on Admission: No Review of Systems - Review of Systems Systems not reviewed;Unavailable: Dementia Past Patient History - Infectious Disease Hx of Infectious Diseases: None - Past Medical History & Family History Past Medical History?: Yes - Past Social History Smoking Status: Unknown If Ever Smoked - CARDIAC Hx Cardiac Disorders: Yes Hx Atrial Fibrillation: Yes Hx Congestive Heart Failure: Yes Hx Hypercholesterolemia: Yes Hx Hypertension: Yes Hx Pacemaker: Yes - PULMONARY Hx Respiratory Disorders: Yes Hx Asthma: Yes - NEUROLOGICAL Hx Neurological Disorder: Yes Hx Transient Ischemic Attacks (TIA): Yes - HEENT Hx HEENT Problems: Yes Other/Comment: Wears corrective lens. Cataract SX - RENAL Hx Chronic Kidney Disease: No - ENDOCRINE/METABOLIC Hx Endocrine Disorders: Yes Hx Diabetes Mellitus Type 2: Yes - HEMATOLOGICAL/ONCOLOGICAL Hx Blood Disorders: Yes Hx Human Immunodeficiency Virus (HIV): Yes - INTEGUMENTARY Hx Dermatological Problems: Yes Other/Comment: had superfical cancer removed fromright cheek ,1 year ago - MUSCULOSKELETAL/RHEUMATOLOGICAL Hx Musculoskeletal Disorders: Yes Hx Falls: Yes Hx Unsteady Gait: Yes - GASTROINTESTINAL Hx Gastrointestinal Disorders: No - GENITOURINARY/GYNECOLOGICAL Hx Genitourinary Disorders: Yes Hx Incontinence: Yes - PSYCHIATRIC Hx Psychophysiologic Disorder: No Hx Substance Use: No - SURGICAL HISTORY Hx Surgeries: Yes Hx Coronary Artery Bypass Graft: Yes - ANESTHESIA Hx Anesthesia: Yes Hx Anesthesia Reactions: No Meds Allergies/Adverse Reactions: Allergies Allergy/AdvReac Type Severity Reaction Status Date / Time No Known Allergies Allergy Verified 10/06/17 17:52 Physical Exam - Constitutional Appears: Well, Non-toxic, No Acute Distress - Head Exam Head Exam: ATRAUMATIC, NORMAL INSPECTION, NORMOCEPHALIC - Eye Exam Eye Exam: EOMI, Normal appearance, PERRL Pupil Exam: NORMAL ACCOMODATION, PERRL - ENT Exam ENT Exam: Mucous Membranes Moist, Normal Exam - Neck Exam Neck exam: Positive for: Normal Inspection - Respiratory Exam Respiratory Exam: Clear to Auscultation Bilateral, NORMAL BREATHING PATTERN - Cardiovascular Exam Cardiovascular Exam: REGULAR RHYTHM, RRR, +S1, +S2 - GI/Abdominal Exam GI & Abdominal Exam: Normal Bowel Sounds, Soft. absent: Tenderness - Extremities Exam Extremities exam: Positive for: full ROM, normal capillary refill, normal inspection, pedal pulses present - Back Exam Back exam: NORMAL INSPECTION - Neurological Exam Neurological exam: Alert, CN II-XII Intact, Normal Gait, Oriented x3, Reflexes Normal - Psychiatric Exam Psychiatric exam: Normal Affect, Normal Mood - Skin Skin Exam: Dry, Intact, Normal Color, Warm Results - Vital Signs Recent Vital Signs: Last Vital Signs Temp 97.3 F L 06/12/18 09:00 Pulse 60 06/12/18 09:00 Resp 18 06/12/18 09:00 BP 136/63 06/12/18 09:00 Pulse Ox 96 06/12/18 09:00 - Labs Result Diagrams: 06/12/18 05:15 06/12/18 05:15 Labs: Laboratory Results - last 24 hr 06/11/18 06/11/18 06/12/18 13:20 13:20 04:55 WBC 6.1 RBC 3.41 L Hgb 11.4 L Hct 33.9 L MCV 99.3 H MCH 33.3 H MCHC 33.5 RDW 14.3 Plt Count 247 MPV 6.8 L Neut % (Auto) 66.3 Lymph % (Auto) 16.5 L [place] % (Auto) 15.7 H Eos % (Auto) 1.1 Baso % (Auto) 0.4 Neut # (Auto) 4.1 Lymph # (Auto) 1.0 [place] # (Auto) 1.0 H Eos # (Auto) 0.1 Baso # (Auto) 0.0 Sodium 130 L Potassium 4.8 Chloride 99 Carbon Dioxide 25 Anion Gap 11 BUN 18 Creatinine 1.2 Est GFR ( Amer) > 60 Est GFR (Non-Af Amer) 58 POC Glucose (mg/dL) 90 Random Glucose 256 H Calcium 8.4 Magnesium 2.3 Total Bilirubin 0.4 AST 24 ALT 30 Alkaline Phosphatase 65 Total Creatine Kinase 57 Total Protein 6.4 Albumin 3.3 L Globulin 3.1 Albumin/Globulin Ratio 1.1 06/12/18 06/12/18 06/12/18 05:15 05:15 11:05 WBC 5.2 RBC 3.45 L Hgb 11.4 L Hct 34.1 L MCV 99.0 H MCH 33.2 H MCHC 33.6 RDW 14.0 Plt Count 282 MPV 6.9 L Neut % (Auto) 61.8 Lymph % (Auto) 19.5 L [place] % (Auto) 15.2 H Eos % (Auto) 3.0 Baso % (Auto) 0.5 Neut # (Auto) 3.2 Lymph # (Auto) 1.0 [place] # (Auto) 0.8 Eos # (Auto) 0.2 Baso # (Auto) 0.0 Sodium 136 Potassium 4.4 Chloride 105 Carbon Dioxide 26 Anion Gap 9 L BUN 16 Creatinine 1.0 Est GFR ( Amer) > 60 Est GFR (Non-Af Amer) > 60 POC Glucose (mg/dL) 204 H Random Glucose 74 L Calcium 8.6 Magnesium Total Bilirubin 0.6 AST 22 ALT 31 Alkaline Phosphatase 62 Total Creatine Kinase Total Protein 6.5 Albumin 3.3 L Globulin 3.3 Albumin/Globulin Ratio 1.0 Assessment & Plan (1) Calcified cerebral meningioma Assessment and Plan: ct head stable, neuro cleared for dc Status: Acute (2) Fall Assessment and Plan: max assista t nh cleared by neuro Status: Acute (3) Head injury Assessment and Plan: ct head stable Status: Acute (4) A-fib Assessment and Plan: eliquis to resume Status: Acute - Assessment and Plan (Free Text) Assessment: lll infiltrate on cxr-started on levaquin, to cont x 1 wk Plan: dvt ppx-eliquis once ct head negative Decision To Admit - Pt Status Changed To: Hospital Disposition Of: Observation - . Bed Request Type: Med/Surg Admitting Physician: Park Pool
--- NOTE | 2018-06-12 13:28 | US ---
Date of service: 06/11/2018 HISTORY: LLE edema bedbound. PRIORS: None. FINDINGS: 2-D, color and duplex Doppler analysis of the lower extremity venous circulation using routine protocol from the femoral veins through the popliteal veins. Venous compressibility: Normal. Flow and augmentation patterns: Normal. Visualized veins upper third of calf: Normal. Pool cyst: None. IMPRESSION: No sonographic or Doppler evidence for DVT in left lower extremity. Concordant findings (preliminary report) provided by [facility].
--- NOTE | 2018-06-12 14:34 | CP.PCM.CON ---
History of Present Illness - History of Present Illness History of Present Illness: Neurology Consultation Note: Mr. Davies is an 82-year-old man, who is on Eliquis, and had a fall with history of dizziness. The patient is currently at baseline. He had a CT head that showed a left frontal calcified meningioma. There was concern that it could be a bleed, but a repeat CT head today confirmed that it is unlikely to be blood, and is a calcified lesion. Neurology was consulted by Dr. Rubalcava for evaluation. Review of Systems - Review of Systems Systems not reviewed;Unavailable: Dementia Past Patient History - Infectious Disease Hx of Infectious Diseases: None - Past Medical History & Family History Past Medical History?: Yes - Past Social History Smoking Status: Unknown If Ever Smoked - CARDIAC Hx Cardiac Disorders: Yes Hx Atrial Fibrillation: Yes Hx Congestive Heart Failure: Yes Hx Hypercholesterolemia: Yes Hx Hypertension: Yes Hx Pacemaker: Yes - PULMONARY Hx Respiratory Disorders: Yes Hx Asthma: Yes - NEUROLOGICAL Hx Neurological Disorder: Yes Hx Transient Ischemic Attacks (TIA): Yes - HEENT Hx HEENT Problems: Yes Other/Comment: Wears corrective lens. Cataract SX - RENAL Hx Chronic Kidney Disease: No - ENDOCRINE/METABOLIC Hx Endocrine Disorders: Yes Hx Diabetes Mellitus Type 2: Yes - HEMATOLOGICAL/ONCOLOGICAL Hx Blood Disorders: Yes Hx Human Immunodeficiency Virus (HIV): Yes - INTEGUMENTARY Hx Dermatological Problems: Yes Other/Comment: had superfical cancer removed fromright cheek ,1 year ago - MUSCULOSKELETAL/RHEUMATOLOGICAL Hx Musculoskeletal Disorders: Yes Hx Falls: Yes Hx Unsteady Gait: Yes - GASTROINTESTINAL Hx Gastrointestinal Disorders: No - GENITOURINARY/GYNECOLOGICAL Hx Genitourinary Disorders: Yes Hx Incontinence: Yes - PSYCHIATRIC Hx Psychophysiologic Disorder: No Hx Substance Use: No - SURGICAL HISTORY Hx Surgeries: Yes Hx Coronary Artery Bypass Graft: Yes - ANESTHESIA Hx Anesthesia: Yes Hx Anesthesia Reactions: No Meds Allergies/Adverse Reactions: Allergies Allergy/AdvReac Type Severity Reaction Status Date / Time No Known Allergies Allergy Verified 10/06/17 17:52 - Medications Medications: Current Medications Acetaminophen (Tylenol 325mg Tab) 650 mg PO Q4 PRN PRN Reason: Pain, Mild (1-3) Acetaminophen (Tylenol 325mg Tab) 650 mg PO Q4 PRN PRN Reason: Temp >101 Al Hydrox/Mg Hydrox/Simethicone (Maalox Plus 30 Ml) 30 ml PO Q4 PRN PRN Reason: Heartburn/indigestion Albuterol/Ipratropium (Duoneb 3 Mg/0.5 Mg (3 Ml) Ud) 3 ml IH RQ6 PRN PRN Reason: Shortness of Breath Apixaban (Eliquis) 5 mg PO Q12 [facility]; Protocol Last Admin: 06/11/18 22:00 Dose: Not Given Aspirin (Aspirin Chewable) 81 mg PO DAILY [facility] Last Admin: 06/12/18 08:56 Dose: 81 mg Bacitracin (Bacitracin Oint) 1 applic TOP DAILY [facility] Last Admin: 06/12/18 08:56 Dose: 1 applic Budesonide (Pulmicort Respules) 0.5 mg IH Q12 [facility] Last Admin: 06/12/18 07:21 Dose: 0.5 mg Cephalexin Monohydrate (Keflex) 500 mg PO Q12 [facility]; Protocol Last Admin: 06/12/18 09:02 Dose: 500 mg Guaifenesin (Mucinex La) 600 mg PO Q12 PRN PRN Reason: congestion Last Admin: 06/11/18 22:02 Dose: 600 mg Home Med (Efinaconazole [Jublia]) 1 applic TP HS [facility] Home Med (Emtricitabine/Tenofov Alafenam [Descovy 200-25 Mg Tablet]) 1 tab PO DAILY [facility] Last Admin: 06/12/18 08:56 Dose: 1 tab Home Med (Propylene Glycol/Peg 400 [Systane 0.3-0.4% Eye Drops]) 1 drop B[place] DAILY [facility] Home Med (Rilpivirine Hcl [Edurant]) 25 mg PO DAILY [facility] Last Admin: 06/12/18 12:15 Dose: 25 mg Insulin Detemir (Levemir) 10 units SC HS [facility] Last Admin: 06/11/18 22:02 Dose: 10 u Insulin Human Lispro (Humalog) 7 units SC TIDAC [facility] Last Admin: 06/12/18 12:15 Dose: 7 units Magnesium Hydroxide (Milk Of Magnesia) 30 ml PO DAILY PRN PRN Reason: no bowel movement x 3 days Raltegravir (Isentress) 400 mg PO Q12 [facility]; Protocol Last Admin: 06/12/18 09:02 Dose: 400 mg Trimethoprim/Sulfamethoxazole (Sulfatrim Pediatric Susp) 20 ml PO MWF [facility]; Protocol Last Admin: 06/12/18 09:04 Dose: 20 ml Physical Exam - Constitutional Appears: Well, Confused - Head Exam Head Exam: ATRAUMATIC, NORMAL INSPECTION, NORMOCEPHALIC - Eye Exam Eye Exam: EOMI, Normal appearance, PERRL Pupil Exam: NORMAL ACCOMODATION, PERRL - ENT Exam ENT Exam: Mucous Membranes Moist, Normal Exam - Neck Exam Neck exam: Positive for: Normal Inspection - Respiratory Exam Respiratory Exam: Clear to Auscultation Bilateral, NORMAL BREATHING PATTERN - Cardiovascular Exam Cardiovascular Exam: REGULAR RHYTHM - GI/Abdominal Exam GI & Abdominal Exam: Normal Bowel Sounds, Soft. absent: Tenderness - Rectal Exam Rectal Exam: Deferred - Extremities Exam Extremities exam: Positive for: normal inspection - Back Exam Back exam: NORMAL INSPECTION - Neurological Exam Neurological exam: Abnormal Gait, Altered, CN II-XII Intact, Oriented x3, Reflexes Normal - Psychiatric Exam Psychiatric exam: Normal Affect, Normal Mood - Skin Skin Exam: Dry, Intact, Normal Color, Warm Results - Vital Signs Recent Vital Signs: Last Vital Signs Temp 97.3 F L 06/12/18 09:00 Pulse 60 06/12/18 09:00 Resp 18 06/12/18 09:00 BP 136/63 06/12/18 09:00 Pulse Ox 96 06/12/18 09:00 - Labs Result Diagrams: 06/12/18 05:15 06/12/18 05:15 Labs: Laboratory Results - last 24 hr 06/12/18 06/12/18 06/12/18 04:55 05:15 05:15 WBC 5.2 RBC 3.45 L Hgb 11.4 L Hct 34.1 L MCV 99.0 H MCH 33.2 H MCHC 33.6 RDW 14.0 Plt Count 282 MPV 6.9 L Neut % (Auto) 61.8 Lymph % (Auto) 19.5 L [place] % (Auto) 15.2 H Eos % (Auto) 3.0 Baso % (Auto) 0.5 Neut # (Auto) 3.2 Lymph # (Auto) 1.0 [place] # (Auto) 0.8 Eos # (Auto) 0.2 Baso # (Auto) 0.0 Sodium 136 Potassium 4.4 Chloride 105 Carbon Dioxide 26 Anion Gap 9 L BUN 16 Creatinine 1.0 Est GFR ( Amer) > 60 Est GFR (Non-Af Amer) > 60 POC Glucose (mg/dL) 90 Random Glucose 74 L Calcium 8.6 Total Bilirubin 0.6 AST 22 ALT 31 Alkaline Phosphatase 62 Total Protein 6.5 Albumin 3.3 L Globulin 3.3 Albumin/Globulin Ratio 1.0 06/12/18 11:05 WBC RBC Hgb Hct MCV MCH MCHC RDW Plt Count MPV Neut % (Auto) Lymph % (Auto) [place] % (Auto) Eos % (Auto) Baso % (Auto) Neut # (Auto) Lymph # (Auto) [place] # (Auto) Eos # (Auto) Baso # (Auto) Sodium Potassium Chloride Carbon Dioxide Anion Gap BUN Creatinine Est GFR ( Amer) Est GFR (Non-Af Amer) POC Glucose (mg/dL) 204 H Random Glucose Calcium Total Bilirubin AST ALT Alkaline Phosphatase Total Protein Albumin Globulin Albumin/Globulin Ratio Assessment & Plan (1) Calcified cerebral meningioma Assessment and Plan: The patient may remain on Eliquis for secondary stroke prevention. No further recommendations from a neurological standpoint. Thank you for the consultation. Status: Acute
--- NOTE | 2018-06-12 15:04 | RAD ---
Date of service: 06/12/2018 HISTORY: r/o aspiration PNA COMPARISON: None. TECHNIQUE: Chest PA and lateral FINDINGS: LUNGS: Retrocardiac, left lower lobe infiltrate. PLEURA: No significant pleural effusion identified. No pneumothorax apparent. CARDIOVASCULAR: Atherosclerotic calcifications identified primarily aortic arch. Cardiomegaly. No evidence of acute, significant cardiovascular disease. Position/ configuration of pacemaker pulmonary vascular congestion. OSSEOUS STRUCTURES: No significant abnormalities. VISUALIZED UPPER ABDOMEN: Normal. OTHER FINDINGS: None. IMPRESSION: Left lower lobe/retrocardiac infiltrate.
[2018-06-12] MEDS ORDERED: levoFLOXacin 500 mg in D5W 500 MG/100 ML BAG IVPB SCH (15:30)
[2018-06-12 16:12] VITALS: BP 145/77; RESP 20; TEMP 98.1; O2SAT 100
--- NOTE | 2018-06-12 20:51 | CARD ---
APPROVED REPORT Date of service: 06/11/2018 EKG Measurement Heart [id number] <Conclusion> Ventricular-paced rhythm Abnormal ECG
--- NOTE | 2018-06-15 17:36 | CP.PCM.DIS ---
Provider - Provider Date of Admission: 06/11/18 16:36 Attending physician: Park Pool MD Consults: 06/11/18 16:42 Neurology Consult Stat Comment: Consulting Provider: Claudio Sanchez Consulting Physician: Claudio Sanchez Reason for Consult: fall, r/o bleed Time Spent in preparation of Discharge (in minutes): 15 Diagnosis - Discharge Diagnosis (1) Calcified cerebral meningioma Status: Acute (2) Fall Status: Acute (3) Head injury Status: Acute (4) A-fib Status: Acute Hospital Course - Lab Results Lab Results: Most Recent Lab Values WBC 5.2 K/uL (4.8-10.8) 06/12/18 05:15 RBC 3.45 Mil/uL (4.40-5.90) L 06/12/18 05:15 Hgb 11.4 g/dL (12.0-18.0) L 06/12/18 05:15 Hct 34.1 % (35.0-51.0) L 06/12/18 05:15 MCV 99.0 fl (80.0-94.0) H 06/12/18 05:15 MCH 33.2 pg (27.0-31.0) H 06/12/18 05:15 MCHC 33.6 g/dL (33.0-37.0) 06/12/18 05:15 RDW 14.0 % (11.5-14.5) 06/12/18 05:15 Plt Count 282 K/uL (130-400) 06/12/18 05:15 MPV 6.9 fl (7.2-11.7) L 06/12/18 05:15 Neut % (Auto) 61.8 % (50.0-75.0) 06/12/18 05:15 Lymph % (Auto) 19.5 % (20.0-40.0) L 06/12/18 05:15 [place] % (Auto) 15.2 % (0.0-10.0) H 06/12/18 05:15 Eos % (Auto) 3.0 % (0.0-4.0) 06/12/18 05:15 Baso % (Auto) 0.5 % (0.0-2.0) 06/12/18 05:15 Neut # (Auto) 3.2 K/uL (1.8-7.0) 06/12/18 05:15 Lymph # (Auto) 1.0 K/uL (1.0-4.3) 06/12/18 05:15 [place] # (Auto) 0.8 K/uL (0.0-0.8) 06/12/18 05:15 Eos # (Auto) 0.2 K/uL (0.0-0.7) 06/12/18 05:15 Baso # (Auto) 0.0 K/uL (0.0-0.2) 06/12/18 05:15 Sodium 136 mmol/l (132-148) 06/12/18 05:15 Potassium 4.4 MMOL/L (3.6-5.0) 06/12/18 05:15 Chloride 105 mmol/L (98-107) 06/12/18 05:15 Carbon Dioxide 26 mmol/L (22-30) 06/12/18 05:15 Anion Gap 9 (10-20) L 06/12/18 05:15 BUN 16 mg/dl (9-20) 06/12/18 05:15 Creatinine 1.0 mg/dl (0.8-1.5) 06/12/18 05:15 Est GFR ( Amer) > 60 06/12/18 05:15 Est GFR (Non-Af Amer) > 60 06/12/18 05:15 POC Glucose (mg/dL) 129 mg/dL (65-110) H 06/12/18 21:32 Random Glucose 74 mg/dL (75-110) L 06/12/18 05:15 Calcium 8.6 mg/dL (8.4-10.2) 06/12/18 05:15 Magnesium 2.3 MG/DL (1.6-2.3) 06/11/18 13:20 Total Bilirubin 0.6 mg/dl (0.2-1.3) 06/12/18 05:15 AST 22 U/L (17-59) 06/12/18 05:15 ALT 31 U/L (21-72) 06/12/18 05:15 Alkaline Phosphatase 62 U/L (38-126) 06/12/18 05:15 Total Creatine Kinase 57 U/L (55-170) 06/11/18 13:20 Total Protein 6.5 G/DL (6.3-8.2) 06/12/18 05:15 Albumin 3.3 g/dL (3.5-5.0) L 06/12/18 05:15 Globulin 3.3 gm/dL (2.2-3.9) 06/12/18 05:15 Albumin/Globulin Ratio 1.0 (1.0-2.1) 06/12/18 05:15 - Hospital Course Hospital Course: neuro ct cxr Discharge Exam - Head Exam Head Exam: ATRAUMATIC, NORMAL INSPECTION, NORMOCEPHALIC Discharge Plan - Discharge Medications Prescriptions: Levofloxacin [Levaquin] 500 mg PO DAILY #7 tablet - Follow Up Plan Condition: STABLE Disposition: TRANSF TO SNF Instructions: Preventing Falls in the Older Adult, Head Injury Observation (DC) Additional Instructions: final dx-fall, head injury, lll infiltrate dc on anbx doing well. neuro cleared for dc ct headnoted. f/u rmg in [facility], rted prn, meds per med rec Referrals: Park Pool MD [Staff Provider] - Claudio Sanchez MD [Medical Doctor] -
== END 2018-06-12 22:00 ==
LOC: H.ER 12:24 → H.ERHOLD 16:36 → H.MEDSURG1 19:02
PROVIDERS: ADMIT Family Medicine; ATTEND Family Medicine
DX: S09.90XA Unspecified injury of head, initial encounter (principal); S80.12XA Contusion of left lower leg, initial encounter; W19.XXXA Unspecified fall, initial encounter; Y92.129 Unspecified place in nursing home as the place of occurrence of the external cause; Z79.01 Long term (current) use of anticoagulants; Z79.82 Long term (current) use of aspirin; Z86.73 Personal history of transient ischemic attack (TIA), and cerebral infarction without residual deficits; Z95.0 Presence of cardiac pacemaker; Z95.1 Presence of aortocoronary bypass graft; Z98.49 Cataract extraction status, unspecified eye; R32 Unspecified urinary incontinence; M25.522 Pain in left elbow; M25.521 Pain in right elbow; R26.81 Unsteadiness on feet; Z21 Asymptomatic human immunodeficiency virus [HIV] infection status; D32.9 Benign neoplasm of meninges, unspecified; E11.9 Type 2 diabetes mellitus without complications; E78.00 Pure hypercholesterolemia, unspecified; I11.0 Hypertensive heart disease with heart failure; I25.10 Atherosclerotic heart disease of native coronary artery without angina pectoris; I48.91 Unspecified atrial fibrillation; I50.9 Heart failure, unspecified; J32.2 Chronic ethmoidal sinusitis; J45.909 Unspecified asthma, uncomplicated
CPT/HCPCS: 36415; 70450; 71046; 72125; 72131; 73080; 73590; 80053; 82550; 82948; 83735; 85025; 93005; 93971; 94640; 99284; G0378